=== PATIENT | female | born 1980 | race Caucasian/White ===

== ENCOUNTER 2019-10-18 13:58 | Outpatient (CLI) | payer OTHER, SELFPAY ==
--- NOTE | 2019-10-18 15:00 | NEURO_ITS ---
Patient Number: [id number] Impression: # Complains of pain and numbness in right upper extremity. # No Carpal Tunnel Syndrome. # No ulnar neuropathy. # Normal needle/EMG exam. Nerve Conduction Studies Anti Sensory Summary Table Stim Site NR Peak (ms) P-T Amp (?V) Site1 Site2 Delta-P (ms) Dist (cm) Pasha (m/s) Right Median Anti Sensory (2-3nd Digit) Wrist 2.5 51.2 Wrist 2-3nd Digit 2.5 14.0 56 Wrist 2.6 62.3 Wrist 2-3nd Digit 2.5 14.0 56 Right Radial Anti Sensory (Base 1st Digit) Wrist 2.2 20.3 Wrist Base 1st Digit 2.2 0.0 Right Ulnar Anti Sensory (5th Digit) Wrist 1.9 34.9 Wrist 5th Digit 1.9 14.0 74 Motor Summary Table Stim Site NR Onset (ms) O-P Amp (mV) Site1 Site2 Delta-0 (ms) Dist (cm) Pasha (m/s) Right Median Motor (Abd Poll Brev) Wrist 2.6 10.7 Elbow Wrist 5.0 30.0 60 Elbow 7.6 4.4 Right Ulnar Motor (Abd Dig Minimi) Wrist 2.5 4.5 A Elbow Wrist 4.6 29.0 63 A Elbow 7.1 3.6 F Wave Studies NR F-Lat (ms) L-R F-Lat (ms) Right Median (Mrkrs) (Abd Poll Brev) 24.19 Right Ulnar (Mrkrs) (Abd Dig Min) 24.97 EMG Side Muscle Nerve Root Ins Act Fibs Amp Dur Recrt Comment Right 1stDorInt Ulnar C8-T1 Nml Nml Nml Nml Nml Right Ext Indicis Radial (Post Int) C7-8 Nml Nml Nml Nml Nml Right Ext Digitorum Radial (Post Int) C7-8 Nml Nml Nml Nml Nml Right BrachioRad Radial C5-6 Nml Nml Nml Nml Nml Right PronatorTeres Median C6-7 Nml Nml Nml Nml Nml Right Abd Poll Brev Median C8-T1 Nml Nml Nml Nml Nml MTDD
== END 2019-10-18 13:59 | disposition home or self-care (01) ==
LOC: ANHNEURO 14:00
PROVIDERS: Visit Provider Internal Medicine
DX: M79.641 Pain in right hand (principal)
CPT/HCPCS: 95886; 95909

== ENCOUNTER 2020-04-09 17:50 | Emergency (ER) | payer OTHER, SELFPAY ==
--- NOTE | ~2020-04-09 | XR_ITS ---
EXAMINATION: XR ankle LT min 3V DATE: 04/09/2020 19:18 INDICATION: Lateral left ankle pain post fall TECHNIQUE: Anteroposterior, oblique, mortise, and lateral views of the left ankle were obtained. COMPARISON: None. FINDINGS: Alignment is normal. No fracture. Enthesophytes along the anterior margin of the lateral malleolus w hich could be either degenerative or sequela of chronic lateral ankle sprain. Joint spaces are well m aintained. Small amount of enthesopathic ossification at the distal Achilles tendon. Additional small plantar calcaneal enthesophyte. No ankle joint effusion. The soft tissues are unremarkable. IMPRESSION: 1. No acute osseous abnormality. Reviewed, dictated and finalized at location A. ER SHOULDER PAD
[2020-04-09 18:05] VITALS: BP 151/99; PULSE 82; RESP 16; TEMP 35.6; O2SAT 98
--- NOTE | 2020-04-09 19:38 | ED.LOWEXIN ---
HPI - Extremity Injury (Lower) General Chief Complaint: Extremity Injury, Lower Stated Complaint: fall at work, lt ankle pain Time Seen by Provider: 04/09/20 19:00 Source: patient Mode of arrival: ambulatory Limitations: no limitations History of Present Illness HPI Narrative: This is a 39 year old female that presents to the ER for left ankle pain after an injury yesterday. Reports she tripped and fell and twisted the ankle. Reports pain on the lateral aspect of the ankle, worse with weight bearing. Has been taking Ibuprofen for pain. Denies other injuries, decreased ROM, or numbness. Related Data Allergies Allergy/AdvReac Type Severity Reaction Status Date / Time No Known Allergies Allergy Unverified 02/13/18 15:48 Review of Systems Review of Systems: Narrative: CONSTITUTIONAL: Denies fever MUSCULOSKELETAL: Reports joint pain, and myalgia. NEUROLOGIC: Denies numbness All systems reviewed & are unremarkable except as noted in HPI and below PMFSH Surgical History Surgical History (Updated 04/09/20 @ 19:44 by Concepcion Pinedo PA-C) History of appendectomy Social History Social History (Updated 04/09/20 @ 19:43 by Concepcion Pinedo PA-C) Substance use: never Exam Narrative: Exam Narrative: GENERAL: Well-appearing, well-nourished, and in no acute distress. HEAD: Normocephalic, atraumatic. EYES: EOMI. EXTREMITIES: Normal range of motion. Mild edema about the left lateral malleoli, tender to palpation. Normal DP pulses. Normal sensation SKIN: Warm, dry, no rash. NEURO: No focal deficits. Alert and oriented x3. PSYCH: Normal mood and affect Course Vital Signs Vital signs: Vital Signs Temperature 96.1 F L 04/09/20 18:05 Pulse Rate 82 04/09/20 18:05 Respiratory Rate 16 04/09/20 18:05 Blood Pressure 151/99 H 04/09/20 18:05 Pulse Oximetry 98 04/09/20 18:05 Temperature 96.1 F L 04/09/20 18:05 Pulse Rate 82 04/09/20 18:05 Respiratory Rate 16 04/09/20 18:05 Blood Pressure 151/99 H 04/09/20 18:05 Pulse Oximetry 98 04/09/20 18:05 MDM - Extremity Injury (Lower) MDM Narrative Medical decision making narrative: Patient presents the emergency department for left ankle injury sustained yesterday. Left ankle x-rays without acute osseous abnormalities. Patient given crutches and Kevin wrap and instructed on care of ankle sprain. She is to follow-up with primary care doctor. She was given warnings to return to the ER Imaging Data Radiologist's impression: ITS Impressions Ankle X-Ray 04/09/20 19:22 IMPRESSION: 1. No acute osseous abnormality. Critical Care Time Critical Care Time Critical Care Time: No Discharge Plan Discharge Clinical Impression: Ankle sprain and strain Patient Disposition: Home, Self-Care Condition: Stable Instructions: Ankle Sprain (ED) Additional Instructions: Return the emergency department if you experience fever, redness and swelling of your leg, numbness, or any other symptoms that are concerning to you Wear KEVIN wrap and use crutches. No weight on the affected leg until able to bear weight without pain. Ice and elevate extremity. Pain medication as needed and directed. Follow up with primary care doctor for further care. Follow-up/Referrals: Gigi Bower MD [Physician] - 1 Week PHYSICIAN,[facility] [Primary Care Provider] -
== END 2020-04-09 20:03 | disposition home or self-care (01) ==
PROVIDERS: Emergency Provider Family Medicine
DX: S93.401A Sprain of unspecified ligament of right ankle, initial encounter (principal); S96.911A Strain of unspecified muscle and tendon at ankle and foot level, right foot, initial encounter; W01.0XXA Fall on same level from slipping, tripping and stumbling without subsequent striking against object, initial encounter
CPT/HCPCS: 73610; 99283

== ENCOUNTER 2021-11-24 13:42 | Outpatient (CLI) | payer OTHER, SELFPAY ==
--- NOTE | ~2021-11-24 | CT_ITS ---
EXAMINATION: CT ankle LT wo con DATE: 11/24/2021 14:15 INDICATION: Left ankle osteochondritis dissecans. Left ankle swelling. TECHNIQUE: Computed tomography (CT) of the left ankle was performed without intravenous contrast. Aut omated exposure control and iterative reconstruction technique were employed. The dose-length product was 315.28 mGy-cm. COMPARISON: Left ankle radiographs 04/09/2020 FINDINGS: Bone alignment is normal. No acute fracture. There is chronic heterotopic calcification dis rusty to lateral malleolus. There are changes of internal fixation of the tibiofibular syndesmosis with 2 bands. There are old screw holes in lateral malleolus and talus. There is mild tibiotalar joint os teoarthritis. There is mild osteoarthritis of many of the midfoot and hindfoot joints. There are enth esophytes at the posterior and plantar aspects of calcaneal tuberosity. There is medial and lateral a nkle subcutaneous edema versus scarring. IMPRESSION: 1. Mild polyarticular osteoarthritis. Reviewed, dictated and finalized at location A.
== END 2021-11-24 13:43 | disposition home or self-care (01) ==
PROVIDERS: Visit Provider Podiatrist Foot & Ankle Surgery
DX: M93.972 Osteochondropathy, unspecified, left ankle and foot (principal); M19.072 Primary osteoarthritis, left ankle and foot
CPT/HCPCS: 73700

== ENCOUNTER 2022-01-05 16:44 | Emergency (ER) | payer OTHER, SELFPAY ==
[2022-01-05 16:56] VITALS: BP 150/88; PULSE 77; RESP 16; TEMP 36.8; O2SAT 99
--- NOTE | 2022-01-05 17:58 | ED_ITS ---
HPI - Eye Problem General Chief complaint: Eye Problems Stated complaint: eye problems Time Seen by Provider: 01/05/22 17:36 History of Present Illness HPI Narrative: 41-year-old female presents to the emergency room for complaints discomfort to the left eye. Patient states that she feels like she might have accidentally scratched her eye earlier today. Patient denies any visual changes or light sensitivity. Patient does admit to a gravel like feeling to the inner aspect of her left eye. Related Data Allergies Allergy/AdvReac Type Severity Reaction Status Date / Time No Known Allergies Allergy Unverified 02/13/18 15:48 Review of Systems Review of Systems: CONSTITUTIONAL: Denies fever, chills, or sweats. EYES: Reports left eye irritation ENT: Denies rhinorrhea, congestion, sore throat, or otalgia. CARDIOVASCULAR: Denies chest pain, palpitations, or edema. RESPIRATORY: Denies cough or dyspnea. GASTROINTESTINAL: Denies abdominal pain, nausea, vomiting, or diarrhea. GENITOURINARY: Denies dysuria or hematuria. SKIN: Denies rash or itching. MUSCULOSKELETAL: Denies back pain, joint pain, or myalgia. NEUROLOGIC: Denies headache, numbness, dizziness, or weakness. PSYCHIATRIC: Denies anxiety or depression. [facility] Surgical History Surgical History History of appendectomy Social History Social History Substance use: never Exam Narrative: GENERAL: Well-appearing, well-nourished, no physical limitations, and in no acute distress. HEAD: Normocephalic, atraumatic. EYES: Left eye erythematous conjunctivae, PERRLA and EOMI. CHEST: Clear to auscultation. No respiratory distress. No wheezes rales or rhonchi. No tenderness. HEART: Regular rate and rhythm. No murmur heard. Normal peripheral pulses. ABDOMEN: Soft, nontender, nondistended, normal active bowel sounds. EXTREMITIES: Normal range of motion. No edema. No clubbing or cyanosis SKIN: Warm, dry, no rash. No noted wounds NEURO: No focal deficits. Alert and oriented x3. MAEW. CN's II-XI intact bilaterally, normal gait PSYCH: Cooperative. Normal mood and affect. Course Course Emergency Course: 1800: Left eye was anesthetized with. Fluorescein reuptake was noted to the left eye at the 8 o'clock position. Vital Signs Vital signs: Vital Signs Temperature 36.8 C 01/05/22 16:56 Pulse Rate 77 01/05/22 16:56 Respiratory Rate 16 01/05/22 16:56 Blood Pressure 150/88 H 01/05/22 16:56 Pulse Oximetry 99 01/05/22 16:56 Temperature 36.8 C 01/05/22 16:56 Pulse Rate 77 01/05/22 16:56 Respiratory Rate 16 01/05/22 16:56 Blood Pressure 150/88 H 01/05/22 16:56 Pulse Oximetry 99 01/05/22 16:56 Discharge Plan Discharge Clinical Impression: Corneal abrasion Patient Disposition: Home, Self-Care Condition: Stable Instructions: Antibiotic Form Prescriptions: New polymyxin B sulf-trimethoprim 10,000 unit- 1 mg/mL drops 1 drp LEFT EYE Q3H 7 Days Qty: 10 0RF Rx Instructions: while awake; do not exceed 6 doses in 24 hours Follow-up/Referrals: PHYSICIAN,[employer]BER [Primary Care Provider] - Time of Disposition: 18:01
[2022-01-05] MEDS: TETANUS,DIPHTHERIA,AC PERTUSSIS ADULT (0.5 ML) BOOSTRIX IM (18:03)
== END 2022-01-05 18:34 | disposition home or self-care (01) ==
LOC: ANHED 18:33
PROVIDERS: Emergency Provider Nurse Practitioner Family
DX: S05.02XA Injury of conjunctiva and corneal abrasion without foreign body, left eye, initial encounter (principal); X58.XXXA Exposure to other specified factors, initial encounter; Z23 Encounter for immunization
CPT/HCPCS: 90471; 90715; 99283; A9270

== ENCOUNTER 2022-04-16 16:16 | Outpatient (CLI) | payer OTHER, SELFPAY | END 2022-04-16 16:17 | disposition home or self-care (01) | PROVIDERS: Visit Provider Obstetrics & Gynecology | DX: Z01.818 Encounter for other preprocedural examination (principal); N92.0 Excessive and frequent menstruation with regular cycle | CPT/HCPCS: 36415; 86850; 86900; 86901 ==

== ENCOUNTER 2022-04-23 00:04 | Day surgery (SDC) | payer OTHER, SELFPAY ==
[2022-04-15 09:50] VITALS: BMI 38.2
--- NOTE | 2022-04-15 09:55 | PC.NURSE ---
Report to the Outpatient Waiting Room, entrance under the green pavilion located off [facility], at time 9:00 on date 04/23/22. Planned Procedure Time: 11:00. Time changes happen often and if your time is changed the preop area will call you the afternoon before. - You and your visitor will be asked to self-screen and do not enter if you have any COVID symptoms. - Only one visitor is requested with a max of two and NO children visitors are allowed at this time. - The patient visitor may be requested to leave or wait in car when not with patient due to distancing restrictions. - A mask is optional within the hospital. Patients may have clear liquids (water, carbonated beverages, clear teas, apple juice) until 3 hours prior to surgery (8:00) with a maximum of 20 ounces. - No food from midnight until time of surgery Take the following medications with a SIP of water the morning of surgery: NONE Medications to discontinue per physician: N/A Date to take last dose: N/A Please no make-up, nail mongolian, hairspray, perfume, deodorant, or body powder the day of surgery. No jewelry (including any body piercings) or valuables the day of surgery, leave them at home. Please take a shower or bath the night before, or the morning of, surgery with an antibacterial soap. Wear comfortable, loose fitting clothing. - Jewelry must be removed prior to entering the operating room. Rings and piercings that are not removed may be cut off. - The hospital will not accept responsibility for valuables. - Please leave all valuables, including medications, at home the day of surgery. If you are going home after surgery, a licensed mule driver must drive you home. - NO public transportation without another adult if you receive anesthesia. - We recommend that an adult stay with you for 24 hours following discharge. - We also recommend that you do not drive, make important decision, drink alcoholic beverages, or take any drugs that were not prescribed by your health care provider for at least 24 hours after your discharge time. Follow any additional instructions given to you from your surgeon. If you or anyone in your household have experienced Covid symptoms in the past week, please notify your surgeon or the nurse liaison at the phone number below for possible testing. Telephone instructions given to PT - CARMINA MATHUR and asked if any additional questions and then verbalized understanding. Patient advised to call surgeon office or pre surgery nurse liaison [phone] if any additional questions.
[2022-04-23] VITALS (10 sets, daily range): BP systolic 106–152; BP diastolic 57–95; PULSE 47–87; RESP 16–20; TEMP 36.3–36.6; O2SAT 95–100
--- NOTE | 2022-04-23 10:14 | P.PNAN_ITS ---
Anes - Initial Pre Proc Eval Procedure: Operation Date: 04/23/22 11:00 Proposed Procedures p Total Laparoscopic Hysterectomy with Bilateral Salpingectomy - Bettye Linn MD Date/Time: 04/23/22 10:14 Surgeon: Bettye Linn MD Pre Op Diagnosis: menorrhagia Patient Data Age: 41 Gender: F Height: 1.65 m Weight: 103.9 kg Allergies Allergy/AdvReac Type Severity Reaction Status Date / Time No Known Allergies Allergy Verified 04/23/22 09:54 Home Medications Medication Instructions Recorded Confirmed Type No Home Medications 04/15/22 04/23/22 History Patient hx anesthesia problems: none Family hx anesthesia problems: none Results Review: All pre-operative results and documents have been reviewed as part of the pre- operative evaluation. [facility] Surgical History Surgical History History of appendectomy Social History Social History Smoking status: Never smoker Alcohol intake: current Drinks per week: 2 Substance use: never Substance use type: does not use Living arrangements: with family Spiritual care concerns: No Anes - Eval Final PreProcedure Day of Procedure 04/23/22 10:14 Patient weight: obese Heart: regular rate and rhythm Lungs: clear to auscultation Airway: Mallampati scale class II Neurological: alert and oriented Last oral intake: >/= 8 hours ASA classification: III Emergent: no Anesthetic plan: proceed Anesthesia type and monitoring: general ETT and standard monitoring Results Review: All pre-operative results and documents have been reviewed as part of the pre-operative evaluation. Informed Consent: The patient's anesthetic plan and its attendant risks and benefits were discussed with the patient/family/POA. Questions were solicited and answers provided to the satisfaction of the patient/family/POA.
[2022-04-23] MEDS: KETOROLAC 15 MG/ML VIAL (*BKC) IV PUSH (10:20)
[2022-04-23] MEDS: ACETAMINOPHEN 500 MG TABLET 1000 MG PO (10:20)
[2022-04-23] MEDS: LACTATED RINGERS 1,000 ML 30 ML IV CONT ×2 (10:26→13:06)
[2022-04-23] MEDS: SCOPOLAMINE 1.5 MG PATCH TRANSDERM (10:26)
--- NOTE | 2022-04-23 10:37 | WPDHPUPDATE1 ---
History and Physical Update Update Date/Time: 04/23/22 10:37 History and Physical has been reviewed, including an updated exam of the patient. There are NO changes in the patient's condition. Risks, benefits, and alternatives have been discussed and questions answered. Patient agrees to proceed with procedure.
--- NOTE | 2022-04-23 11:07 | SUR.PREOP ---
DR MACARIO AWARE THAT PATIENT IS UNABLE/UNWILLING TO REMOVE RIGHT EYEBROW RING. REFUSAL TO REMOVE WAIVER SIGNED BY PATIENT AND PLACED IN CHART
[2022-04-23] MEDS: ceFAZolin 2 GM/D5W 50 ML 2 GM/50 ML BAG IVPB (11:15)
[2022-04-23] MEDS: ceFAZolin SODIUM 1 GM VIAL (12:04)
--- NOTE | 2022-04-23 12:56 | P.OP_ITS ---
Procedure Note - Detailed Date of Procedure 04/23/22 Pre-op Diagnosis menorrhagia Post-op Diagnosis Same Procedure Performed Total laparoscopic hysterectomy. Surgeon Bettye Linn MD Anesthesia General Indications Menorrhagia Findings Very hard/scarred tissue in the parametrium and the vagina was thick and scarred. The posterior cul-de-sac bilateral surfaces were scarred. Normal- appearing ovaries. Mildly enlarged uterus. Normal vulva, vagina, cervix. Description of Procedure This patient was taken to the operating room. She was prepped and draped in the dorsal lithotomy position after induction of general anesthesia. The uterine manipulator and Karen cup were placed. This was done with a speculum and tenaculum. The speculum was placed. The cervix was grasped with a tenaculum. The stay sutures were placed at 3 and 9:00 a.m.. The stay sutures of 0 Vicryl were brought through the appropriately sized Karen cup. The tip of the LAINEY manipulator was placed in the intrauterine cavity. The cup was slid into place around the cervix and into the fornices. It was locked into place. The sutures were then wrapped around the handle and tied under tension. A 5 mm skin incision was made in the left upper quadrant the abdomen. A 5 mm trocar was inserted into the intrauterine cavity under direct visualization of the scope. Pneumoperitoneum was achieved. A left lower quadrant 11 mm incision was made with scalpel. An 11 mm trocar was inserted into the anterior abdominal cavity under direct visualization the scope. A 5 mm infraumbilical incision was made with a scalpel and a 5 mm trocar was inserted the intra-abdominal cavity under direct visualization of the scope. Bilateral ureteral lysis was performed. This was done from the pelvic brim down to the uterine artery. This was done with careful dissection using sharp and blunt dissection. The fallopian tubes were removed bilaterally. The mesosalpinx around the fallopian tubes were cauterized transected with LigaSure cautery. This was done in a bilateral fashion from the ovary to the uterine cornua. The fallopian tube was transected at the uterine cornu and amputated. The tube was taken out the left lower quadrant trocar site. In a stepwise fashion along the lateral aspects of the uterus the round ligament and broad ligaments were cauterized transected down to the level of the uterine arteries. A bladder flap was created in the bladder was moved distally to the end of the cervix and over the Karen cup. The bilateral uterine arteries were cauterized and transected. Colpotomy was then performed. In a circumferential fashion the vagina was transected using unipolar cautery. The incision was made down on the Karen cup. The uterus and cervix were taken out through the vagina. A pneumo occluder was placed in the vagina. The vaginal cuff was closed with a 0 V lock suture in a running fashion. The pelvis was irrigated with copious amounts antibiotic irrigation. The ureters were again examined and found to be intact and flowing freely under the uterine arteries into the bladder. The bladder was intact. It was examined directly. The vagina was irrigated with Betadine solution after removal of the Pneumo occluder. The patient was taken to recovery room. She was stable condition. Sponge lap and needle counts were correct x2. Estimated Blood Loss 100 Drains Yes Packing No Pathology Yes Complications No immediate complications Condition Stable Disposition Floor
[2022-04-23] MEDS: ONDANSETRON INJ 4 MG/2 ML VIAL IV PUSH (13:47)
[2022-04-23] MEDS: fentaNYL CITRATE INJ (*CRX) 100 MCG/2 ML VIAL 25 MCG IV PUSH ×2 (13:50→13:52)
[2022-04-23] MEDS: KETOROLAC 30 MG/ML VIAL (*BKC) IV PUSH ×2 (14:57→22:00)
[2022-04-23] MEDS: DEXTROSE 5%/0.45% SOD CHL 1,000 ML 125 ML IV CONT (14:58)
--- NOTE | 2022-04-23 16:03 | ADMGEN ---
1437-This patient, Jael Tabares, was admitted to OB 2nd Floor Room 287-00. Patient/family oriented to hospital policies and general routines including ID bracelet, bed and alarms, visiting hours, pain management, procedures, bathroom and other care routines, personal items, smoking policy, room service/diet, and visiting hours. Information on how to activate the Rapid Response Team has been discussed. Patient/Family are encouraged to report perceived risks to care and to ask questions if they do not understand what they are told or what they should do.
[2022-04-23] MEDS: HYDROcodone/acetaminophen (*CRX) 5-325 MG TABLET 1 TAB PO (17:48)
[2022-04-24 00:20] VITALS: BP 133/78; PULSE 74; RESP 18; TEMP 36.7; O2SAT 98
[2022-04-24 04:30] VITALS: BP 130/75; PULSE 62; RESP 18; TEMP 37; O2SAT 96
--- NOTE | 2022-04-24 08:30 | PC.NURSE ---
PT introductions made and plan of care discussed per post op director advertising surgery, pain management, daily care activities and pending discharge to home. PT sole recipient of such instructions and no barriers to learning identified at this time. PT received such instructions per one to one discussion and demonstrations. PT verbalized understanding of such care.
[2022-04-24 09:13] VITALS: BP 118/72; BP 130/75; PULSE 74; RESP 18; TEMP 36.6; O2SAT 100
[2022-04-24] MEDS: IBUPROFEN 600 MG TABLET PO (09:13)
--- NOTE | 2022-04-24 09:35 | PM.GYNPNOP ---
TREATING ENGINEER - A/P Postoperative Procedures: Procedures Operation Date: 04/23/22 11:00 Actual Procedure Side Surgeon p Total Laparoscopic Hysterectomy with Bilateral Salpingectomy Bilateral Bettye Linn MD Postoperative day: 1 Postoperative status: doing well Postoperative plan: see orders Time Spent With Patient Time: Total time spent is greater than 50% in coordination of care (as documented) at patient's floor/unit and/or counseling patient: Time with patient: less than 15 minutes TREATING ENGINEER- PN:Subj Post-Op Subjective Date/time seen: 04/24/22 09:35 Subjective: patient reports feeling better, patient has no complaints and pain is well controlled Exam Const: General: healthy appearing, comfortable and no acute distress Resp: Auscultation: clear to auscultation bilaterally, no rales, no rhonchi and no wheezes Cardio: Rate: regular rate Heart sounds: no click, no murmurs and no rubs GI: Inspection: non-distended Auscultation: normal bowel sounds Extrem: General: normal to inspection, no pedal edema and no calf tenderness TREATING ENGINEER - PN: Obj Data Vital Signs Vital Signs: Vital Signs - 24 hr 04/23/22 13:06 04/23/22 13:20 04/23/22 13:35 Temperature 97.9 F Pulse Rate 70 60 55 L Respiratory Rate 17 20 20 Blood Pressure 106/57 L 140/82 152/91 H Pulse Oximetry 97 100 100 Oxygen Delivery Simple Face Mask Simple Face Mask Simple Face Mask Oxygen Flow Rate 8 8 8 04/23/22 13:50 04/23/22 14:05 04/23/22 14:20 Temperature Pulse Rate 48 L 47 L 50 L Respiratory Rate 16 18 16 Blood Pressure 150/83 H 133/76 140/84 Pulse Oximetry 95 99 98 Oxygen Delivery Room Air Nasal Cannula Nasal Cannula Oxygen Flow Rate 2 2 04/23/22 15:00 04/23/22 14:45 04/23/22 20:00 Temperature 97.8 F 98 F Pulse Rate 58 L 58 L 60 Respiratory Rate 16 16 16 Blood Pressure 140/84 136/82 Pulse Oximetry 100 100 100 Oxygen Delivery Nasal Cannula Oxygen Flow Rate 2 04/23/22 20:00 04/24/22 00:20 04/24/22 00:20 Temperature 98.1 F Pulse Rate 74 Respiratory Rate 18 Blood Pressure 133/78 Pulse Oximetry 100 98 Oxygen Delivery Nasal Cannula Room Air Oxygen Flow Rate 1 04/24/22 04:30 04/24/22 04:30 Temperature 98.6 F Pulse Rate 62 Respiratory Rate 18 Blood Pressure 130/75 Pulse Oximetry 96 Oxygen Delivery Room Air Oxygen Flow Rate Intake/Output Intake/Output: Intake & Output 04/21/22 04/22/22 04/23/22 04/24/22 23:59 23:59 23:59 23:59 Intake Total 2350 Output Total 1640 Balance 710 Meds/Results Medications: Active Medications Generic Name Dose Route Start Last Admin Trade Name Freq PRN Reason Stop Dose Admin Hydrocodone Bitart/Acetaminophen 1 tab 04/23/22 14:29 04/23/22 17:48 Hydrocodone/Acetaminophen (*Crx) 5-325 Mg Tablet PO 1 tab Q3H PRN Administration Pain Rated 5 or Less Hydrocodone Bitart/Acetaminophen 1 tab 04/23/22 14:29 Hydrocodone/Acetaminophen (*Crx) 10-325 Mg Tablet PO Q3H PRN Pain Rated 6 or Greater Ibuprofen 600 mg 04/23/22 14:29 04/24/22 09:13 Ibuprofen 600 Mg Tablet PO 600 mg Q6H PRN Administration Cramping Ketorolac Tromethamine 30 mg 04/23/22 14:29 04/23/22 22:00 Ketorolac 30 Mg/Ml Vial (*Bkc) IV PUSH 04/28/22 14:28 30 mg Q6H PRN Administration Pain Rated 4-6 Naloxone HCl 0.1 mg 04/23/22 14:29 Naloxone Hcl 0.4 Mg/Ml Vial IV PUSH Q2M PRN Respiratory rate less than 10 Ondansetron HCl 4 mg 04/23/22 14:29 Ondansetron Inj 4 Mg/2 Ml Vial IV PUSH Q6H PRN Nausea And Vomiting
--- NOTE | 2022-04-24 12:51 | WPDANESPN ---
Anes - Prog Note Post-Op Date/Time: 04/24/22 11:34 Cardiovascular status: normal Respiratory status: normal Airway patency: baseline Mental status: baseline Post-Op hydration status: normal Vital Signs: Last Vital Signs Temp 97.8 F 04/24/22 09:13 Pulse 74 04/24/22 09:13 Resp 18 04/24/22 09:13 BP 130/75 04/24/22 09:13 Pulse Ox 100 04/24/22 09:13 O2 Del Method Room Air 04/24/22 09:13 O2 Flow Rate 1 04/23/22 20:00 Pain Score (VAS): 2 I/O: Intake & Output 04/23/22 04/24/22 04/24/22 23:59 07:59 15:59 Intake Total 1500 480 Output Total 1500 Balance 0 480 Post-procedural complaints: none Patient Feedback: Patient satisfied with anesthetic care.
--- NOTE | 2022-04-24 14:00 | PC.NURSE ---
PT received discharge instruction per protocol and verbalized understanding of such care.
--- NOTE | 2022-04-24 14:17 | PC.NURSE ---
PT discharged to home via wheelchair accompanied by mother and taken to waiting car. Follow up appts confirmed
== END 2022-04-24 14:17 | disposition home or self-care (01) ==
LOC: ANHSURGERY 08:48 → ANHOB2 14:31
PROVIDERS: Visit Provider Obstetrics & Gynecology
PROC: 0UT9FZZ Resection of Uterus, Via Natural or Artificial Opening With Percutaneous Endoscopic Assistance (ICD-10-PCS; CPT 58571; principal; 2022-04-23 11:00)
DX: N92.0 Excessive and frequent menstruation with regular cycle (principal); N80.00 Endometriosis of the uterus, unspecified; E66.9 Obesity, unspecified; Z68.38 Body mass index [BMI] 38.0-38.9, adult
CPT/HCPCS: 58571; 88300; 88307; 99199; A9270; J0690; J1100; J1885; J2250; J2405; J2704; J2710; J3010; J7030; J7120

== ENCOUNTER 2022-05-19 10:06 | Emergency (ER) | payer OTHER, SELFPAY ==
[2022-05-19 10:07] VITALS: BP 164/106; PULSE 81; RESP 18; TEMP 36.4; O2SAT 99
--- NOTE | 2022-05-19 12:40 | ED.GENADULT ---
HPI - General Adult General Chief complaint: Skin/Abscess/Foreign Body Stated complaint: rash on my face Time Seen by Provider: 05/19/22 12:10 Source: patient Mode of arrival: ambulatory Limitations: no limitations History of Present Illness HPI narrative: 41-year-old here with facial rash for past 1 day. Patient states that she took Diflucan and broke out in rash she complains of occasional itching. Patient states that she had similar episode when she took her last time, always happens on her face. She denies any shortness of breath or problems swallowing. Onset (ago): day(s) (1) Location: face Radiation: non-radiation Severity: mild Pain Consistency: constant Relieving factors: none Exacerbating factors: none Associated symptoms: denies other symptoms Related Data Allergies Allergy/AdvReac Type Severity Reaction Status Date / Time No Known Allergies Allergy Verified 04/23/22 09:54 Review of Systems Review of Systems: All systems reviewed & are unremarkable except as noted in HPI and below Constitutional: Constitutional: Reports no additional constitutional complaints Eyes: Eyes: Reports no additional eye complaints ENT: Reports system reviewed and no additional complaints, except as documented Cardiovascular: Cardiovascular: Reports no additional cardiovascular complaints Respiratory: Respiratory: Reports no additional respiratory complaints Gastrointestinal: Gastrointestinal: Reports no additional gastrointestinal complaints Musculoskeletal: Musculoskeletal: Reports no additional musculoskeletal complaints Integumentary/Breasts: Skin/Breast: Reports as per HPI Neurologic: Reports system reviewed and no additional complaints, except as documented PMFSH Surgical History Surgical History History of appendectomy Social History Social History Smoking status: Never smoker Alcohol intake: current Drinks per week: 2 Substance use: never Substance use type: does not use Living arrangements: with family Spiritual care concerns: No Exam Narrative: GENERAL: Well-appearing, well-nourished, and in no acute distress. HEAD: Normocephalic, atraumatic. EYES: PERRLA and EOMI. NECK: Supple. CHEST: Clear to auscultation. No respiratory distress. HEART: Regular rate and rhythm. No murmur heard. Normal peripheral pulses. EXTREMITIES: Normal range of motion. No edema. SKIN: Warm, dry, has a erythematous rash on the face NEURO: No focal deficits. Alert and oriented x3. PSYCH: Normal mood and affect. Course Course Emergency Course: Advised to stop using Diflucan and use prednisone as prescribed Vital Signs Vital signs: Vital Signs Temperature 36.4 C 05/19/22 10:07 Pulse Rate 81 05/19/22 10:07 Respiratory Rate 18 05/19/22 10:07 Blood Pressure 164/106 H 05/19/22 10:07 Pulse Oximetry 99 05/19/22 10:07 Temperature 36.4 C 05/19/22 10:07 Pulse Rate 70 05/19/22 12:54 Respiratory Rate 12 05/19/22 12:54 Blood Pressure 142/102 H 05/19/22 12:54 Pulse Oximetry 98 05/19/22 12:54 Medical Decision Making Vital Signs Vital Signs: Vital Signs Temperature 36.4 C 05/19/22 10:07 Pulse Rate 81 05/19/22 10:07 Respiratory Rate 18 05/19/22 10:07 Blood Pressure 164/106 H 05/19/22 10:07 Pulse Oximetry 99 05/19/22 10:07 Temperature 36.4 C 05/19/22 10:07 Pulse Rate 70 05/19/22 12:54 Respiratory Rate 12 05/19/22 12:54 Blood Pressure 142/102 H 05/19/22 12:54 Pulse Oximetry 98 05/19/22 12:54 Discharge Plan Discharge Clinical Impression: Allergic reaction to drug Patient Disposition: Home, Self-Care Condition: Stable Instructions: Allergies (ED) Additional Instructions: take medication as prescribed , can take benadryl as needed for itching Prescriptions: New prednisone 20 mg tablet 20 mg PO BID Qty: 1
[2022-05-19 12:54] VITALS: BP 142/102; PULSE 70; RESP 12; O2SAT 98
== END 2022-05-19 12:55 | disposition home or self-care (01) ==
PROVIDERS: Emergency Provider Family Medicine
DX: R21 Rash and other nonspecific skin eruption (principal); T37.8X5A Adverse effect of other specified systemic anti-infectives and antiparasitics, initial encounter
CPT/HCPCS: 99283

== ENCOUNTER 2022-08-22 23:58 | Emergency (ER) | payer OTHER, SELFPAY ==
[2022-08-23 00:05] VITALS: BP 145/82; PULSE 98; RESP 18; TEMP 36.5; O2SAT 99
[2022-08-23 01:21] LABS: Appearance Urine Turbid (Clear); Bacteria Urine 4+ /hpf; Bilirubin Urine Negative (Negative); Blood Urine Trace (Negative); Color Urine Yellow (Yellow); Glucose Urine UA Negative (Negative); Ketones Urine Trace mg/dL (Negative); Leukocyte Esterase Ur 3+ LEU/UL (Negative); Need Manual Microscopic Reviewed; Nitrate Urine Negative (Negative); Non Pathogenic Casts 0-2; Protein Urine 1+ mg/dL (Negative); Specific Grav Ur 1.013 (1.001-1.035); Squamous Epithelial Cell Urine Moderate /hpf (Few); WBC Urine 51-100 /hpf; pH Urine 6.5 (5.0-9.0)
[2022-08-23 01:22] LABS: Add Urine Microscopic? YES
--- NOTE | 2022-08-23 01:30 | ED.BACK ---
HPI - Back Pain/Injury General Chief Complaint: Back Pain/Injury Stated Complaint: back pain started this morning, denies injury Time Seen by Provider: 08/23/22 00:45 History of Present Illness HPI Narrative: 42-year-old female presenting to the Emergency Department for evaluation of lower back pain and kidney pain. Patient does also report some burning with urination. Patient states she did have sexual activity recently and started having the symptoms afterwards. Related Data Allergies Allergy/AdvReac Type Severity Reaction Status Date / Time fluconazole Allergy Hives Verified 08/23/22 00:45 Review of Systems Review of Systems: All systems reviewed & are unremarkable except as noted in HPI and below PMFSH Surgical History Surgical History History of appendectomy Social History Social History Smoking status: Never smoker Alcohol intake: current Drinks per week: 2 Substance use: never Substance use type: does not use Living arrangements: with family Spiritual care concerns: No Exam Narrative: APPEARANCE: Well appearing, no pain, no distress, well-nourished. HEAD: normocephalic, atraumatic. EYES: PERRLA/EOMI, conjunctivae clear. NOSE: Normal no drainage NECK: Supple. No adenopathy, no masses. RESPIRATORY: Airway patent, respirations nonlabored. Clear to auscultation bilaterally, no rales, rhonchi, wheezing. CARDIOVASCULAR: Regular rate and rhythm without murmurs rubs or gallops. ABDOMINAL: Soft, nontender, nondistended, normal bowel sounds. Bilateral CVA tenderness to palpation MUSCULOSKELETAL: Moves all extremities. Strength/ROM intact, No edema, No calf tenderness. NEURO: Alert. Cranial nerves II through XII intact. SKIN: Warm, dry. Normal Color Course Course Emergency Course: 42-year-old female with lower back pain. UA was significant for urinary tract infection. Patient was provided Pyridium and Keflex in the emergency room. Urine culture was ordered. Patient was updated and results of her work-up. Patient will also be discharged with Pyridium and Keflex. Patient was comfortable with the plan for discharge and close follow-up Vital Signs Vital signs: Vital Signs Temperature 97.7 F 08/23/22 00:05 Pulse Rate 98 08/23/22 00:05 Respiratory Rate 18 05/29/23 00:05 Blood Pressure 145/82 H 08/23/22 00:05 Pulse Oximetry 99 08/23/22 00:05 Oxygen Delivery Room Air 08/23/22 00:05 Temperature 97.7 F 08/23/22 00:05 Pulse Rate 81 08/23/22 01:44 Respiratory Rate 16 08/23/22 01:44 Blood Pressure 113/77 08/23/22 01:44 Pulse Oximetry 98 08/23/22 01:44 Oxygen Delivery Room Air 08/23/22 00:05 MDM - Back Pain/Injury Differential Diagnosis Differential diagnosis: Likely lumbar radiculopathy, sciatica, renal colic and pyelonephritis Lab Data Attestation: I reviewed the patient's lab results. Labs: Lab Results 08/23/22 Range/Units 00:46 Urine Color Yellow (Yellow) Urine Appearance Turbid H (Clear) Urine pH 6.5 (5.0-9.0) Ur Specific [place] 1.013 (1.001-1.035) Urine Protein 1+ H (Negative) mg/dL Urine Glucose (UA) Negative (Negative) mg/dL Urine Ketones Trace H (Negative) mg/dL Ur Blood (Man) Trace (Negative) Urine Nitrate Negative (Negative) Urine Bilirubin Negative (Negative) Urine Urobilinogen 1.0 (<2.0) mg/dL Add Ur Microanalysis Reviewed Leukocyte Esterase Rfl 3+ H (Negative) ALLA/UL Urine RBC 11-20 H (0-2) /hpf Urine WBC 51-100 H /hpf Ur Squamous Epith Cells Moderate (Few) /hpf Urine Bacteria 4+ H /hpf Urine Casts 0-2 Discharge Plan Discharge Clinical Impression: UTI (urinary tract infection) Back pain Qualifiers: Back pain location: low back pain Chronicity: acute Patient Disposition: Home, Self-Care Condition: Stable Instructions: Antibiotic Fo
[2022-08-23] MEDS: PHENAZOPYRIDINE HCL 100 MG TABLET PO (01:36)
[2022-08-23] MEDS: CEPHALEXIN 250 MG CAPSULE PO (01:36)
[2022-08-23 01:44] VITALS: BP 113/77; PULSE 81; RESP 16; O2SAT 98
== END 2022-08-23 01:45 | disposition home or self-care (01) ==
PROVIDERS: Emergency Provider Emergency Medicine
DX: N39.0 Urinary tract infection, site not specified (principal); M54.50 Low back pain, unspecified
CPT/HCPCS: 81001; 87077; 87086; 87088; 87186; 99283; A9270

== ENCOUNTER 2022-10-02 12:58 | Emergency (ER) | payer OTHER, SELFPAY ==
--- NOTE | ~2022-10-02 | XR_ITS ---
EXAMINATION: XR chest 2V DATE: 10/02/2022 13:55 INDICATION: Cough. Lightheadedness. TECHNIQUE: Frontal and lateral views of the chest were obtained. COMPARISON: None. FINDINGS: The chest demonstrates clear lungs without pneumonia, pleural effusion, or pneumothorax. Th e heart size is normal. IMPRESSION: 1. No acute cardiopulmonary disease. Reviewed, dictated and finalized at location A.
[2022-10-02 13:04] VITALS: BP 153/87; PULSE 75; RESP 14; TEMP 36.8; O2SAT 97
--- NOTE | 2022-10-02 13:09 | ECG_ITS ---
Measurements Intervals [place] Rate: 77 P: 46 AL: 154 QRS: 29 QRSD: 86 T: 12 QT: 365 QTc: 414 Interpretive Statements SINUS RHYTHM BORDERLINE ST-T WAVE ABNORMALITY- INFERIOR LEADS BORDERLINE ECG NO PREVIOUS ECG AVAILABLE FOR COMPARISON Electronically Signed On 10-02-2022 16:42:29 CDT by Car Morley D.O.
--- NOTE | 2022-10-02 13:32 | ED.RECABL ---
HPI - Recheck/Abnormal Lab/Rx General Chief Complaint: Recheck/Abnormal Lab/Rx Stated Complaint: weird feeling in my body, GUERRERO, nausea Time Seen by Provider: 10/02/22 13:06 History of Present Illness HPI narrative: Patient is a 42-year-old female with a history of hypertension presenting with lightheadedness. Patient states that she had 2 episodes yesterday of lightheadedness with nausea. States that she woke up this morning and again had the sensation. States that she was on her way to work when she became too lightheaded so she came in for evaluation. She reports nasal congestion and a mild cough but no chest pain or shortness of breath. No abdominal pain, vomiting, diarrhea, dysuria, leg swelling. No recent fevers or headache. No numbness or weakness. No vertigo. Patient states that she is supposed to be on blood pressure medicines but she has never had them filled. Related Data Allergies Allergy/AdvReac Type Severity Reaction Status Date / Time fluconazole Allergy Hives Verified 08/23/22 00:45 Review of Systems Review of Systems: All systems reviewed & are unremarkable except as noted in HPI and below PMFSH Surgical History Surgical History History of appendectomy Social History Social History Smoking status: Never smoker Alcohol intake: current Drinks per week: 2 Substance use: never Substance use type: does not use Living arrangements: with family Spiritual care concerns: No Exam Narrative: GENERAL: Well-appearing, well-nourished, and in no acute distress. HEAD: Normocephalic, atraumatic. EYES: PERRLA and EOMI. ENT: Mild nasal congestion. Mucous membranes moist. NECK: Supple. CHEST: Clear to auscultation. No respiratory distress. No chest wall tenderness HEART: Regular rate and rhythm. No murmur heard. Normal peripheral pulses. ABDOMEN: Soft, nontender, nondistended EXTREMITIES: Normal range of motion. No edema. SKIN: Warm, dry, no rash. NEURO: No focal deficits. Alert and oriented x3. PSYCH: Normal mood and affect. Course Vital Signs Vital signs: Vital Signs Temperature 98.2 F 10/02/22 13:04 Pulse Rate 75 10/02/22 13:04 Respiratory Rate 14 10/02/22 13:04 Blood Pressure 153/87 H 10/02/22 13:04 Pulse Oximetry 97 10/02/22 13:04 Oxygen Delivery Room Air 10/02/22 13:04 Temperature 98.2 F 10/02/22 13:04 Pulse Rate 68 10/02/22 16:28 Respiratory Rate 16 10/02/22 16:28 Blood Pressure 137/60 10/02/22 16:28 Pulse Oximetry 99 10/02/22 16:28 Oxygen Delivery Room Air 10/02/22 13:04 MDM - Recheck/Abnormal Lab/Rx MDM Narrative Medical decision making narrative: Patient is a 42-year-old female presenting with episodes of lightheadedness. Patient is slightly hypertensive, otherwise vitals are within normal limits. Exam remarkable for the above. EKG per my interpretation shows normal sinus rhythm, normal axis and intervals, no ST elevations or depressions. Blood work is unremarkable. Normal renal function. No leukocytosis. Troponin is undetectable. UA is a bit contaminated but does not appear infected. Patient was given IV fluids. Orthostatics are normal. On reevaluation, the patient is resting comfortably. States that she feels improved. She is asking about a work note. We will provide a work note through Tuesday. Advised close PCP follow-up. Advised adequate oral hydration. Appropriate return precautions given. Patient voiced understanding and is agreeable with plan. Discharged in stable condition. Differential Diagnosis Differential diagnosis: Likely other (lightheadedness, hypertension, dehydration, UTI) Medical Records Attestation: I reviewed the patient's medical records. Lab Data Attestation: I reviewed the patient's lab results. 10/02/22 13:42 10/02/22 13:42 Labs: Lab Results 0
[2022-10-02] MEDS: SODIUM CHLORIDE 0.9% IV 1,000 ML 999 ML IV CONT (14:07)
[2022-10-02 14:08] LABS: Basophils Percent Auto 0.6 % (0.2-1.2); Eosinophils Absolute Auto 0.1 K/mm3 (0-0.3); Eosinophils Percent Auto 1.9 % (0-4.4); Hematocrit 42.7 % (37.0-47.0); Hemoglobin 13.9 g/dL (12.0-15.0); Immature Granulocyte Absolute 0.02 K/mm3 (0.00-0.031); Immature Granulocyte Percent A 0.3 % (0-0.5); Lymphocytes Absolute Auto 1.25 K/mm3 (0.9-3.2); Lymphocytes Percent Auto 19.6 % (18.3-44.2); Mean Corpuscular HGB Conc 32.6 g/dl (32-36); Mean Corpuscular Hemoglobin 30.9 pg (26-34); Mean Corpuscular Volume 94.9 fl (80-100); Mean Platelet Volume 10.9 fl (7.4-10.4); Monocytes Absolute Auto 0.4 K/mm3 (0.1-0.6); Monocytes Percent Auto 6.7 % (2.6-8.5); Neutrophils Absolute Auto 4.5 K/mm3 (1.3-6.7); Neutrophils Percent Auto 70.9 % (45.5-73.1); Platelet Count Result 226 k/mm3 (150-375); Red Cell Distribution Width 13.2 % (11.5-14.5); White Blood Count 6.4 K/mm3 (4.5-10.0)
[2022-10-02 14:20] LABS: Partial Thromboplastin Time 27.5 SECONDS (22.3-36.8); Prothrombin Time 13.4 Seconds (11.1-14.7)
[2022-10-02 14:21] LABS: Alanine Aminotransferase 27 U/L (6-35); Albumin Level 4.6 g/dL (3.5-5.1); Alkaline Phosphatase 68 U/L (38-126); Anion Gap 7 mmol/L (8-16); Aspartate Amino Transferase 20 U/L (14-36); Bilirubin,Total 0.5 mg/dL (0.2-1.3); Blood Urea Nitrogen 16 mg/dL (7-17); Calcium 9.5 mg/dL (8.4-10.2); Carbon Dioxide 30 mmol/L (22-30); Chloride 101 mmol/L (98-107); Estimated CRCL calculation 110 ml/min; Estimated Glomerular Filt Rate > 60; Glucose 108 mg/dL (65-110); Lipase 58 U/L (23-300); Magnesium 2.1 mg/dL (1.6-2.3); Potassium 4.6 mmol/L (3.4-5.0); Sodium 138 mmol/L (137-145)
[2022-10-02 14:32] LABS: Troponin I < 0.012 ng/mL (0.000-0.034)
[2022-10-02 14:38] LABS: Appearance Urine Turbid (Clear); Bacteria Urine Rare /hpf; Bilirubin Urine Negative (Negative); Blood Urine Negative (Negative); Color Urine Yellow (Yellow); Glucose Urine UA Negative (Negative); Hyaline Casts Urine Present /lpf; Ketones Urine Negative (Negative); Leukocyte Esterase Ur Trace LEU/UL (Negative); Nitrate Urine Negative (Negative); Non Pathogenic Casts 0-2; Protein Urine Negative (Negative); Specific Grav Ur 1.019 (1.001-1.035); Squamous Epithelial Cell Urine Occasional /hpf (Few); Urobilinogen Urine 0.2 mg/dL (<2.0); WBC Urine 0-5 /hpf; pH Urine 7.5 (5.0-9.0)
[2022-10-02 14:42] LABS: Add Urine Microscopic? YES
[2022-10-02 14:48] LABS: Influenza A QL RT-PCR Negative (Negative); Influenza B QL RT-PCR Negative (Negative); RSV RNA, RT-PCR Negative (Negative); SARS-CoV-2 RNA PCR Negative (Negative)
[2022-10-02 14:52] VITALS: BP 133/87; PULSE 66
[2022-10-02 14:54] VITALS: BP 147/90; PULSE 63
[2022-10-02 14:56] VITALS: BP 144/102; PULSE 72
[2022-10-02 15:46] VITALS: BP 142/87; PULSE 68; RESP 16; O2SAT 96
[2022-10-02 16:28] VITALS: BP 137/60; PULSE 68; RESP 16; O2SAT 99
== END 2022-10-02 16:28 | disposition home or self-care (01) ==
PROVIDERS: Emergency Provider Emergency Medicine
DX: R42 Dizziness and giddiness (principal); I10 Essential (primary) hypertension; Z20.822 Contact with and (suspected) exposure to COVID-19
CPT/HCPCS: 36415; 71046; 80053; 81001; 83690; 83735; 84484; 85025; 85610; 85730; 87637; 93005; 96360; 96361; 99284; J7030

== ENCOUNTER 2023-07-17 15:26 | Emergency (ER) | payer OTHER, SELFPAY ==
[2023-07-17 15:28] VITALS: BP 141/80; PULSE 75; RESP 18; TEMP 36.6; O2SAT 100
[2023-07-17 18:07] LABS: Appearance Urine Cloudy (Clear); Bacteria Urine 3+ /hpf; Bilirubin Urine Negative (Negative); Blood Urine Negative (Negative); Color Urine Yellow (Yellow); Glucose Urine UA Negative (Negative); Ketones Urine Negative (Negative); Leukocyte Esterase Ur Negative LEU/UL (Negative); Need Manual Microscopic Reviewed; Nitrate Urine Negative (Negative); Non Pathogenic Casts 0-2; Protein Urine Negative (Negative); Specific Grav Ur 1.021 (1.001-1.035); Squamous Epithelial Cell Urine Few /hpf (Few); Urobilinogen Urine 0.2 mg/dL (<2.0)
[2023-07-17 18:09] LABS: Add Urine Microscopic? YES
--- NOTE | 2023-07-17 18:15 | ED.FEMALEGU ---
HPI - Female Genitourinary General Chief complaint: Urogenital-Female Stated complaint: UTI Time Seen by Provider: 07/17/23 17:50 Source: patient Mode of arrival: ambulatory Limitations: no limitations History of Present Illness HPI Narrative: This is a 42-year-old female who presents to the ED with chief complaint of urinary symptoms for the past 2 days. Reports urgency and frequency. States it is difficult to urinate fully. Denies hematuria or burning. Denies fevers, chills, abdominal pain, flank pain, nausea, vomiting. States last time she had UTIs she took Macrobid this seemed to help. Related Data Allergies Allergy/AdvReac Type Severity Reaction Status Date / Time fluconazole Allergy Hives Verified 08/23/22 00:45 Review of Systems Review of Systems: All systems as dictated in [facility] Surgical History Surgical History History of appendectomy Social History Social History Smoking status: Never smoker Alcohol intake: current Drinks per week: 2 Substance use: never Substance use type: does not use Living arrangements: with family Spiritual care concerns: No Exam Narrative: GENERAL: Well-appearing, well-nourished, and in no acute distress. HEAD: Normocephalic, atraumatic. EYES: PERRLA and EOMI. ENT: Nares clear, no rhinorrhea or epistaxis. Mucous membranes moist. Oropharynx without tonsillar hypertrophy exudate or other lesions. NECK: Supple. No adenopathy or masses. CHEST: No respiratory distress. Clear to auscultation. No wheezes rales or rhonchi HEART: Regular rate and rhythm. No murmur heard. Normal peripheral pulses. ABDOMEN: Negative flank tenderness. Soft, nontender, nondistended, normal active bowel sounds. MSK: Normal range of motion. No edema. SKIN: Warm, dry, no rash. NEURO: Alert and oriented x3. No focal deficits. PSYCH: Normal mood and affect. Course Vital Signs Vital signs: Vital Signs Temperature 97.8 F 07/17/23 15:28 Pulse Rate 75 07/17/23 15:28 Respiratory Rate 18 07/17/23 15:28 Blood Pressure 141/80 H 07/17/23 15:28 Pulse Oximetry 100 04/21/24 15:28 Oxygen Delivery Room Air 07/17/23 15:28 Temperature 97.8 F 07/17/23 15:28 Pulse Rate 75 07/17/23 15:28 Respiratory Rate 18 07/17/23 15:28 Blood Pressure 141/80 H 07/17/23 15:28 Pulse Oximetry 100 07/17/23 15:28 Oxygen Delivery Room Air 07/17/23 15:28 MDM - Female Genitourinary MDM Narrative Medical decision making narrative: This is a 42-year-old female who presents to the ED with chief complaint of urinary symptoms for the past 2 days. Feels similar to previous UTIs. Vitals are normal. Exam is benign. No flank pain or evidence of acute abdomen. Urinalysis shows 3-5 rbc's, 6-10 wbc's 3+ bacteria indicating UTI. She has done well with Macrobid in the past some Macrobid was prescribed today. Previous urine culture does show sensitivity to Macrobid. Pt will be discharged in stable condition. Return precautions given and supportive measures discussed. Pt is understanding and agreeable with plan for discharge and follow-up with PCP. Lab Data Labs: Lab Results 07/17/23 Range/Units 17:45 Urine Color Yellow (Yellow) Urine Appearance Cloudy H (Clear) Urine pH 6.0 (5.0-9.0) Ur Specific [place] 1.021 (1.001-1.035) Urine Protein Negative (Negative) mg/dL Urine Glucose (UA) Negative (Negative) mg/dL Urine Ketones Negative (Negative) mg/dL Ur Blood (Man) Negative (Negative) Urine Nitrate Negative (Negative) Urine Bilirubin Negative (Negative) Urine Urobilinogen 0.2 (<2.0) mg/dL Add Ur Microanalysis Reviewed Leukocyte Esterase Rfl Negative (Negative) ALLA/UL Urine RBC 3-5 H (0-2) /hpf Urine WBC 6-10 H (0-3) /hpf Ur Squamous Epith Cells Few (Few) /hpf Urine Bacteria 3+ H /hpf Uri
== END 2023-07-17 18:30 | disposition home or self-care (01) ==
LOC: ANHED 18:27
PROVIDERS: Emergency Provider Physician Assistant
DX: N39.0 Urinary tract infection, site not specified (principal)
CPT/HCPCS: 81001; 87086; 87088; 99283

== ENCOUNTER 2023-07-24 18:03 | Emergency (ER) | payer OTHER, SELFPAY ==
[2023-07-24 18:09] VITALS: BP 151/87; PULSE 76; RESP 16; TEMP 36.1; O2SAT 100
[2023-07-24 18:32] VITALS: RESP 18; O2SAT 98
[2023-07-24 18:53] LABS: Carboxyhemoglobin 0.6 % THb (0-2.0); Fractional Inspired Oxygen 21 %; HCO3 ABG 23.5 mEq/l (22.0-26.0); Methemoglobin ABG 0.1 %THb (0-1.5); Oxygen Content ABG 19.5 %vol (16.0-22.0); Oxygen Saturation ABG 97.6 % (95.0-100.0); Oxyhemoglobin 96.7 % THb (90.0-100.0); PCO2 ABG 35.2 mmHg (35.0-45.0); PO2 ABG 96.6 mmHg (80.0-100.0); Reduced Hemoglobin 2.6 %THb (0-5.0); Total Hemoglobin 14.3 g/dL (12.0-18.0); pH ABG 7.443 (7.350-7.450)
[2023-07-24 18:54] LABS: Site Drawn LEFT RADIAL
[2023-07-24 18:55] LABS: Device ROOM AIR; Modified Allen's Test Pass
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
== END 2023-07-24 19:17 | disposition home or self-care (01) ==
PROVIDERS: Emergency Provider Emergency Medicine
DX: Z77.098 Contact with and (suspected) exposure to other hazardous, chiefly nonmedicinal, chemicals (principal)
CPT/HCPCS: 36600; 82375; 82805; 83050; 99283

== ENCOUNTER 2024-08-14 13:17 | Outpatient (CLI) | payer OTHER, SELFPAY ==
--- OUTSIDE RECORDS SUMMARY | 2024-08-14 13:22 | XMS_ITS | Data Portability ---
Author Organization [facility] [place] Address [address] [place] [address] Assessment Encounter Date Assessment Date Assessment LastModified by Organization Details LastModified Time 01/24/2024 01/24/2024 Annual gynecological exam performed. Patient will come back in a year unless there are new symptoms. [email or web address] Not available 01/24/2024 12:48:32 Plan of Treatment Reminders Order Date Submit Date Provider Last Modified By Organization Details Last Modified Time Details Appointments None recorded . Lab CMP, serum or plasma 2023 [facility] (Lab), [address], [place], [address], 5 05:01:36 TSH, serum or plasma 2023 [facility] (Lab), [address] [place], [address], 5 05:01:36 T4, free, serum 2023 [facility] (Lab), [address] [place], [address], 5 05:01:36 HbA1c (hemoglo bin A1c), blood 2023 [facility] (Lab), [address], [place], [address], 5 05:01:36 urinalys is, dipstick 2023 024 [email or web address] [address], [address], [place], [address], 4 17:16:08 culture, urine 2023 024 [facility] (Lab), [address], [place], [address], 4 07:21:29 urinalys is, dipstick 2023 024 [email or web address] [address], [address], [place], [address], 4 14:33:51 hbcab (hepatit is B core Ab) igm, serum 2022 023 [facility] (Lab), [address], [place], [address], 3 23:11:45 HBsAg (hepatit is B surface Ag), serum 2022 023 [facility] (Lab), [address], [place], [address], 3 23:11:43 hepatiti s C virus Ab, serum 2022 023 [facility] (Lab), [address], [place], [address], 3 23:11:44 unlisted lab - HIV 1/2 antigen/ antibody , reflex confirma tion 2022 023 [facility] (Lab), [address], [place], [address], 3 23:11:44 RPR (rapid plasma reagin), serum 2022 023 [facility] (Lab), [address], [place], [address], 3 23:11:44 Referral physical therapis t referral 2023 [facility] (Outpatient Physical Therapy), [address], [place], [address], 5 05:01:36 Procedures None recorded . Surgeries None recorded . Imaging MAMMO, screenin g, digital, bilatera l 2023 [facility], [address], [place], [place], [address], 5 05:01:36 Medication Orders Macrobid [address] [facility] #36696, [address] [place] [address], [id number], 4 12:52:58 Pyridium [address] [facility] #36852, [address] [place] [address], [id number], 4 12:52:34 acyclovi r [address] [facility] #22967, [address] [place] [address], [id number], 4 17:14:26 triamcin olone acetonid e 0.025 % topical ointment 2023 024 [email or web address] [facility] #38200, [address] [place] [address], [id number], 4 17:14:07 Macrobid 100 mg capsule 2023 024 [email or web address] [facility] #87358, [address] [place] [address], [id number], 4 12:52:22 acyclovi r 800 mg tablet [address] [facility] #88739, [address], [id number], 4 14:41:12 terconaz ole 0.8 % vaginal cream 2022 023 [facility] #89265, [address], [id number], 3 15:21:43 triamcin olone acetonid e 0.1 % topical ointment 2022 023 [facility] #21050, [address], [id number], 3 15:21:47 Patient TargetsNo targets recorded. Patient InstructionsNo instructions recorded. Reason for Referral Physical Therapist Referral for Left side sciatica Referring Physician: Jose Shaw, CABLE LACER, Encounter Date: 01/24/2024 Results Created Date Observation Date Name Description Value Unit Range Abnormal Flag Note LastModifiedBy Organization Detail LastModifiedTime 07/20/1907/19/2022 CT/GC AND TRICH OMONA S VAGIN GUERO (RRNA ), SWAB chlamydia trachomatis, PCR Negati ve negati ve Not Available [facility] (Lab) [address] , [place], [address], 2022 13:35:47 07/20/19 23 07/19/2022 CT/GC AND TRICH OMONA S VAGIN GUERO (RRNA ), SWAB neisseria gonorrhoeae, PCR Negati ve negati ve Not Available [facility] (Lab) [address], [place], [address], 2022 13:35:47 07/20/19 23 07/19/2022 CT/GC AND TRICH OMONA S VAGIN GUERO (RRNA ), SWAB trichomonas vaginalis ribosomal RNA (rrna) Negati ve negati ve Not Available [facility] (Lab) [address] [place], [address], 2022 13:35:47 07/20/19 23 07/19/2022 VAGIN ITIS/ VAGIN OSIS, DNA PROBE camille sp. detection, direct probe Positi ve negati ve abnormal Not Available [facility] (Lab) [address] [place], [address], 2022 13:35:48 07/20/19 23 07/19/2022 VAGIN ITIS/ VAGIN OSIS, DNA PROBE gardnerella vag. detection, direct probe Positi ve negati ve abnormal Not Available [facility] (Lab) [address] [place], [address], 2022 13:35:48 07/20/19 23 07/19/2022 VAGIN ITIS/ VAGIN OSIS, DNA PROBE trichomonas vag. detection, direct probe Negati ve negati ve Not Available [facility] (Lab) [address] [place], [address], 2022 13:35:48 07/20/19 23 07/19/2022 CULTU RE: URINE result report SEE RESULT S BELOW Test: Cultu re: Urine Speci men Sourc e: Urine Voide d Speci men Type: Urine Speci men Date: 2022 3:15 PM Resul t Date: 2022 12:33 PM Resul t Statu s: Final resul t Abnor mal: No Resul ting Lab: [facility] [address] [facility] [address] Tel: [phone] CULTU RE ----- ----- ----- --- Cultu re resul t (>=3 organ isms prese nt) indic ates possi ble conta minat ion. Repea t cultu re if sympt oms indic ate. Not Available [facility] (Lab) [address] [facility], [place], [address], 2022 13:35:48 12/21/1912/20/2022 HEPAT ITIS B SURFA CE ANTIG EN hepatitis B surface antigen NON-RE ACTIVE non-re active This assay was perfo rmed using [employer] reage nts and test kits. Value s obtai carmella with other assay metho ds or kits canno t be used inter regalado eably . Not Available [facility] (Lab) [address] [facility], [place], [address], 12/22/2022 23:11:43 12/21/1912/20/2022 HEPAT ITIS C ANTIB NATANAEL SCREE N, REFLE X TO CONFI RMATI ON hepatitis C antibody NON-RE ACTIVE non-re active Antib odies to HCV Not Detec louis, does not exclu de the possi bilit y of expos ure to HCV. Not Available [facility] (Lab) [address] [facility], [place], [address], 12/22/2022 23:11:43 12/21/1912/20/2022 HIV 1/2 ANTIG EN/AN TIBOD Y, REFLE X CONFI RMATI ON HIV antigen/anti body NONREA CTIVE nonrea ctive HIV-1 antig en and HIV-1 /HIV- 2 antib odies were not detec louis. No labor atory evide nce of HIV infec tion. Not Available [facility] (Lab) [address] [facility], [place], [address], 12/22/2022 23:11:44 12/21/19 23 12/20/2022 RPR SCREE N/REF ASIA TITER /FTA RPR screen NONREA CTIVE nonrea ctive Not Available [facility] (Lab) [address] [facility], [place], [address], 12/22/2022 23:11:44 12/21/19 23 12/20/2022 HEPAT ITIS B CORE, IGM hepatitis B core IgM antibody NEGATI VE negati ve Not Available [facility] (Lab) [address] [facility], [place], [address], 12/22/2022 23:11:45 04/07/19 24 04/07/2023 URINA LYSIS , WITH MICRO SCOPI C, REFLE X CULTU RE color, urine Light Yellow Not Available [facility] (Lab) [address] [facility], [place], [address], 04/08/2023 04:00:22 04/07/19 24 04/07/2023 URINA LYSIS , WITH MICRO SCOPI C, REFLE X CULTU RE clarity, urine Clear Not Available [facility] (Lab) [address] [facility], [place], [address], 04/08/2023 04:00:22 04/07/19 24 04/07/2023 URINA LYSIS , WITH MICRO SCOPI C, REFLE X CULTU RE specific gravity, urine 1.020 . 1.005- 1.035 Not Available [facility] (Lab) [address] [place], [address], 04/08/2023 04:00:22 04/07/19 24 04/07/2023 URINA LYSIS , WITH MICRO SCOPI C, REFLE X CULTU RE pH, urine 7.0 . 5.0-7. 0 Not Available [facility] (Lab) [address] [place], [address], 04/08/2023 04:00:22 04/07/19 24 04/07/2023 URINA LYSIS , WITH MICRO SCOPI C, REFLE X CULTU RE protein, UA Negati ve mg/dL negati ve, 10-20 Not Available [facility] (Lab) [address] [place], [address], 04/08/2023 04:00:22 04/07/19 24 04/07/2023 URINA LYSIS , WITH MICRO SCOPI C, REFLE X CULTU RE glucose, urine Normal mg/dL normal , negati ve Not Available [facility] (Lab) [address] [facility], [place], [address], 04/08/2023 04:00:22 04/07/19 24 04/07/2023 URINA LYSIS , WITH MICRO SCOPI C, REFLE X CULTU RE ketones, urine Negati ve mg/dL negati ve Not Available [facility] (Lab) [address] [facility], [place], [address], 04/08/2023 04:00:22 04/07/19 24 04/07/2023 URINA LYSIS , WITH MICRO SCOPI C, REFLE X CULTU RE bilirubin, urine Negati ve negati ve Not Available [facility] (Lab) [address] [facility], [place], [address], 04/08/2023 04:00:22 04/07/19 24 04/07/2023 URINA LYSIS , WITH MICRO SCOPI C, REFLE X CULTU RE blood, urine Negati ve negati ve Not Available [facility] (Lab) [address] [facility], [place], [address], 04/08/2023 04:00:22 04/07/19 24 04/07/2023 URINA LYSIS , WITH MICRO SCOPI C, REFLE X CULTU RE nitrite, urine 2+ negati ve abnormal Not Available [facility] (Lab) [address] [facility], [place], [address], 04/08/2023 04:00:22 04/07/19 24 04/07/2023 URINA LYSIS , WITH MICRO SCOPI C, REFLE X CULTU RE leukocyte esterase, urine Negati ve alberto/u L negati ve Not Available [facility] (Lab) [address] [facility], [place], [address], 04/08/2023 04:00:22 04/07/19 24 04/07/2023 URINA LYSIS , WITH MICRO SCOPI C, REFLE X CULTU RE urobilinogen , urine Normal mg/dL normal , <2.0 Not Available [facility] (Lab) [address] [facility], [place], [address], 04/08/2023 04:00:22 04/07/19 24 04/07/2023 URINA LYSIS , WITH MICRO SCOPI C, REFLE X CULTU RE RBC, urine 0-2 /hpf none, 0-2 Not Available [facility] (Lab) [address] [facility], [place], [address], 04/08/2023 04:00:22 04/07/19 24 04/07/2023 URINA LYSIS , WITH MICRO SCOPI C, REFLE X CULTU RE WBC, urine 0-5 /hpf none, 0-5 Not Available [facility] (Lab) [address] [facility], [place], [address], 04/08/2023 04:00:22 04/07/19 24 04/07/2023 URINA LYSIS , WITH MICRO SCOPI C, REFLE X CULTU RE squamous epithelial cells, urine Few /hpf none abnormal Not Available [facility] (Lab) [address] [facility], [place], [address], 04/08/2023 04:00:22 04/07/19 24 04/07/2023 URINA LYSIS , WITH MICRO SCOPI C, REFLE X CULTU RE bacteria, urine Trace /hpf none abnormal Not Available [facility] (Lab) [address] [facility], [place], [address], 04/08/2023 04:00:22 04/07/19 24 04/07/2023 URINA LYSIS , WITH MICRO SCOPI C, REFLE X CULTU RE hyaline cast, urine None /lpf none, 0-2 Not Available [facility] (Lab) [address] [facility], [place], [address], 04/08/2023 04:00:22 04/07/19 24 04/07/2023 URINA LYSIS , WITH MICRO SCOPI C, REFLE X CULTU RE mucus, urine Modera te /hpf none, trace, few abnormal Urine Cultu re not perfo rmed per refle x marycarmen col. Not Available [facility] (Lab) [address] [facility], [place], [address], 04/08/2023 04:00:22 04/07/19 24 04/07/2023 VAGIN ITIS/ VAGIN OSIS, DNA PROBE camille sp. detection, direct probe Negati ve negati ve Not Available [facility] (Lab) [address] [facility], [place], [address], 04/08/2023 09:52:39 04/07/19 24 04/07/2023 VAGIN ITIS/ VAGIN OSIS, DNA PROBE gardnerella vag. detection, direct probe Positi ve negati ve abnormal Not Available [facility] (Lab) [address] [facility], [place], [address], 04/08/2023 09:52:39 04/07/19 24 04/07/2023 VAGIN ITIS/ VAGIN OSIS, DNA PROBE trichomonas vag. detection, direct probe Negati ve negati ve Not Available [facility] (Lab) [address] [facility], [place], [address], 04/08/2023 09:52:39 04/07/19 24 04/07/2023 urina lysis , dipst ick Leukocytes trace Not Available Mandeep arellano [address], [place], [address], 04/07/2023 14:26:36 04/07/19 24 04/07/2023 urina lysis , dipst ick Nitrite + Not Available [facility] [address], [place], [address], 04/07/2023 14:26:36 04/07/19 24 04/07/2023 urina lysis , dipst ick Urobilinogen neg Not Available [facility] [address], [place], [address], 04/07/2023 14:26:36 04/07/19 24 04/07/2023 urina lysis , dipst ick Protein trace Not Available [facility] [address], [place], [address], 04/07/2023 14:26:36 04/07/19 24 04/07/2023 urina lysis , dipst ick pH 7 Not Available [facility] [address], [place], [address], 04/07/2023 14:26:36 04/07/19 24 04/07/2023 urina lysis , dipst ick Blood trace Not Available [facility] [address], [place], [address], 04/07/2023 14:26:36 04/07/19 24 04/07/2023 urina lysis , dipst ick Specific [place] 1.010 Not Available [facility] am[facility] [address], [place], [address], 04/07/2023 14:26:36 04/07/19 24 04/07/2023 urina lysis , dipst ick Ketone neg Not Available [facility] [address], [place], [address], 04/07/2023 14:26:36 04/07/19 24 04/07/2023 urina lysis , dipst ick Bilirubin neg Not Available [facility] [address], [place], [address], 04/07/2023 14:26:36 04/07/19 24 04/07/2023 urina lysis , dipst ick Glucose neg Not Available [facility] [address], [place], [address], 04/07/2023 14:26:36 04/07/19 24 04/07/2023 urina lysis , dipst ick Appearance clear Not Available [facility] [address], [place], [address], 04/07/2023 14:26:36 04/07/19 24 04/07/2023 urina lysis , dipst ick Color yellow Not Available [facility] [address], [place], [address], 04/07/2023 14:26:36 08/23/19 24 08/23/2023 CULTU RE: URINE result report SEE RESULT S BELOW Test: Cultu re: Urine Speci men Sourc e: Urine - Clean Catch Speci men Type: Urine Speci men Date: 2023 4:58 PM Resul t Date: 2023 6:16 AM Resul t Statu s: Final resul t Abnor mal: No Resul ting Lab: [facility] [address] [facility] [address] Tel: CULTU RE ----- ----- ----- --- No growt h in 1 day (dete ction level of 10,00 0 colon ies / ml.) Not Available [facility] (Lab) [address], [place], [address], 08/25/2023 07:21:29 08/23/19 24 08/23/2023 urina lysis , dipst ick Leukocytes trace Not Available [facility] [address], [place], [address], 08/23/2023 17:14:46 08/23/19 24 08/23/2023 urina lysis , dipst ick Nitrite + Not Available [facility] [address], [place], [address], 08/23/2023 17:14:46 08/23/19 24 08/23/2023 urina lysis , dipst ick Urobilinogen normal Not Available [facility] lenin [address], [place], [address], 08/23/2023 17:14:46 08/23/19 24 08/23/2023 urina lysis , dipst ick Protein trace Not Available [facility] [address], [place], [address], 08/23/2023 17:14:46 08/23/19 24 08/23/2023 urina lysis , dipst ick pH 5 Not Available [facility] [address], [place], [address], 08/23/2023 17:14:46 08/23/19 24 08/23/2023 urina lysis , dipst ick Specific [place] 1.030 Not Available [facility] [address], [place], [address], 08/23/2023 17:14:46 08/23/19 24 08/23/2023 urina lysis , dipst ick Ketone normal Not Available [facility] [address], [place], [address], 08/23/2023 17:14:46 08/23/19 24 08/23/2023 urina lysis , dipst ick Bilirubin normal Not Available [facility] sylvia [address], [place], [address], 08/23/2023 17:14:46 08/23/19 24 08/23/2023 urina lysis , dipst ick Glucose normal Not Available [facility] [address], [place], [address], 08/23/2023 17:14:46 08/23/19 24 08/23/2023 urina lysis , dipst ick Appearance normal Not Available [facility] [address], [place], [address], 08/23/2023 17:14:46 08/23/19 24 08/23/2023 urina lysis , dipst ick Color normal Not Available [facility] [address], [place], [address], 08/23/2023 17:14:46 Result Notes None recorded. 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 16:01:43 Problem Notes None recorded. Procedures Surgical History Date Name Laterality Status Provider Name and Address Organization Details Recorded Time 04/23/19 23 ROBOTIC ASSISTED HYSTERECTOMY WITH SALPINGECTOMY (SURG) completed Conchita Garland [facility] 04/26/2022 09:43:58 04/14/19 23 Removal of Foreign Body completed HECTOR Calle [address], [place], [address], [facility] 04/14/2022 15:19:50 05/12/19 22 Date of Last Pap Smear completed Amber Hewitt [facility] 05/27/2022 14:20:56 03/28/19 21 Endometrial Ablation completed Amber Prairie [facility] 01/19/2022 14:35:42 01/28/20 20 ligation of fallopian tube completed Waleska Palmubo [facility] [address], [place], [address], [facility] 02/09/2022 14:12:58 03/28/19 20 Date of Last Mammogram completed Amber Nichols [facility] 01/19/2022 14:33:52 03/28/19 14 repair of ulnar digital nerve completed Amber Nichols [facility] 01/19/2022 14:36:57 03/28/19 13 Carpal tunnel surgery completed [facility] 01/19/2022 14:36:10 03/28/18 88 Appendectomy completed [facility] 01/19/2022 14:35:52 Imaging Results None recorded. Procedure Notes None recorded. Medical Equipment None Reported. Allergies Allergen ID Allergen Name Allergen Category Reaction Reaction Severity Criticality Documentation Date Start Date Code Code System Note Provider Name and Address Organization Details Recorded Time fluconazo le medicatio n Not available Not available Not available 05/27/2022 4450 RxNorm [facility] 14:20:38 Medications Name Sig Start Date Stop Date Status Note LastModified by Organization Details LastModified Time cyclobenzap rine 10 mg tablet TAKE 1 TABLET BY MOUTH AT BEDTIME NEEDED FOR MUSCLE CRAMPS active Not Available Not Available No t Available ibuprofen 800 mg tablet TAKE 1 TABLET BY MOUTH EVERY 8 HOURS WITH FOOD NEEDED 08/22 completed Not Available Not Available Not Available nystatin 100,000 unit/gram topical ointment APPLY TOPICALLY TO THE AFFECTED AREA TWICE DAILY 05/27 completed Not Available Not Available Not Available fluconazole 150 mg tablet TAKE 1 TABLET BY MOUTH NOW. REPEAT IN 7 DAYS 05/27 completed Not Available Not Available Not Available cephalexin 250 mg capsule TAKE 1 CAPSULE BY MOUTH EVERY 6 HOURS FOR 7 DAYS 12/20 completed Not Available Not Available Not Available hydrocodone 5 mg-acetamin ophen 325 mg tablet TAKE 1 TABLET BY MOUTH EVERY 4 HOURS NEEDED FOR PAIN 05/27 completed Not Available Not Available Not Available fluconazole 200 mg tablet TAKE 1 TABLET BY MOUTH EVERY OTHER DAY FOR 3 DOSES 05/27 completed Not Available Not Available Not Available meloxicam 15 mg tablet TAKE 1 TABLET BY MOUTH DAILY 01/19 completed Not Available Not Available Not Available metronidazo le 0.75 % (37.5 mg/5 gram) vaginal gel INSERT 1 APPLICATO RFUL EVERY DAY VAGINALLY AT BEDTME FOR 5 DAYS 08/22 completed Not Available Not Available Not Available ondansetron HCl 4 mg tablet TAKE 1 TABLET BY MOUTH EVERY 8 HOURS 04/07 completed Not Available Not Available Not Available prednisone 20 mg tablet TAKE 1 TABLET BY MOUTH TWICE DAILY 05/27 completed Not Available Not Available Not Available terconazole 0.8 % vaginal cream INSERT 1 APPLICATO RFUL VAGINALLY EVERY DAY AT BEDTIME FOR 3 DAYS 12/20 completed Not Available Not Available Not Available metronidazo le 500 mg tablet TAKE 1 TABLET BY MOUTH EVERY 12 HOURS FOR 7 DAYS 12/20 completed Not Available Not Available Not Available acyclovir 400 mg tablet TAKE 1 TABLET BY MOUTH EVERY 8 HOURS FOR 10 DAYS DIRECTED 05/27 completed Not Available Not Available Not Available ciprofloxac in 500 mg tablet TAKE 1 TABLET BY MOUTH EVERY 12 HOURS 05/27 completed Not Available Not Available Not Available triamcinolo ne acetonide 0.1 % topical cream APPLY TOPICALLY TO THE AFFECTED AREA TWICE DAILY 12/20 completed Not Available Not Available Not Available acyclovir 800 mg tablet Take 1 tablet every day by oral route with meal(s) for 30 days. 2024 active Not Available Not Available Not Avai lable nystatin-tr iamcinolone 100,000 unit/gram-0 .1 % topical ointment APPLY TO AFFECTED AREA BY TOPICAL ROUTE 2 TIMES PER DAY FOR 7 DAYS 05/27 completed Not Available Not Available Not Available oxycodone-a cetaminophe n 5 mg-325 mg tablet TAKE 1 TABLET BY MOUTH EVERY EVENING NEEDED FOR PAIN 04/07 completed Not Available Not Available Not Available amoxicillin 875 mg tablet TAKE 1 TABLET BY MOUTH EVERY 12 HOURS FOR 10 DAYS 01/19 completed Not Available Not Available Not Available phenazopyri dine 100 mg tablet TAKE 1 TABLET BY MOUTH THREE TIMES DAILY FOR 3 DAYS NEEDED 01/23 completed Not Available Not Available Not Available triamcinolo ne acetonide 0.1 % topical ointment APPLY THIN LAYER TOPICALLY TO THE AFFECTED AREA TWICE DAILY FOR 5 DAYS 12/20 completed Not Available Not Available Not Available polymyxin B sulfate 10,000 unit-trimet hoprim 1 mg/mL eye drops INSTILL 1 DROP IN LEFT EYE EVERY 3 HOURS WHILE AWAKE FOR 7 DAYS. DO NOT EXCEED 6 DOSES IN 24 HOURS 02/09 completed Not Available Not Available Not Available hydrochloro thiazide 12.5 mg capsule TAKE 1 CAPSULE BY MOUTH EVERY DAY IN THE MORNING 02/09 completed Not Available Not Available Not Available triamcinolo ne acetonide 0.025 % topical ointment APPLY THIN LAYER TOPICALLY TO THE AFFECTED AREA TWICE DAILY NEEDED 08/22 completed Not Available Not Available Not Available gabapentin 300 mg capsule TAKE 1 CAPSULE BY MOUTH EVERY NIGHT 02/09 completed Not Available Not Available Not Available albuterol sulfate HFA 90 mcg/actuati on aerosol inhaler INHALE 2 PUFFS BY MOUTH EVERY 4 HOURS NEEDED active Not Available Not Available No t Available nitrofurant oin monohydrate /macrocryst als 100 mg capsule TAKE 1 CAPSULE BY MOUTH EVERY 12 HOURS FOR 7 DAYS 01/23 completed Not Available Not Available Not Available Vitals Date Recorded Body height Systolic blood pressure Diastolic blood pressure Provider Name and Address Organization Details Last Updated DateTime 07/19/2022 160.02 cm 145 mm[Hg] 88 mm[Hg] [facility] 07/19/2022 11:22:43 Date Recorded Body height Body mass index (BMI) Body weight Systolic blood pressure Diastolic blood pressure Provider Name and Address Organization Details Last Updated DateTime 12/20/2022 160.02 cm 42.8 kg/m2 738328.6 4 g 141 mm[Hg] 85 mm[Hg] [facility] 3 15:21:23 Date Recorded Body height Body mass index (BMI) Body weight Systolic blood pressure Diastolic blood pressure Provider Name and Address Organization Details Last Updated DateTime 04/07/2023 160.02 cm 40.6 kg/m2 259569.6 5 g 132 mm[Hg] 84 mm[Hg] Amber Hewitt [facility] 4 14:19:23 Date Recorded Body height Body mass index (BMI) Body weight Provider Name and Address Organization Details Last Updated DateTime 08/23/2023 160.02 cm 42.2 kg/m2 365084.98 g Sydnee Ortiz [facility] 08/23/2023 17:13:37 Date Recorded Systolic blood pressure Diastolic blood pressure Provider Name and Address Organization Details Last Updated DateTime 08/23/2023 126 mm[Hg] 78 mm[Hg] Waleska Palumbo, [facility] [address], [place], [address], [facility] 08/23/2023 18:01:00 Date Recorded Body height Body mass index (BMI) Body weight Systolic blood pressure Diastolic blood pressure Provider Name and Address Organization Details Last Updated DateTime 01/24/2024 160.02 cm 44.1 kg/m2 923227.5 g 136 mm[Hg] 88 mm[Hg] Elham Rush [facility] 12:51:53 Social History Question Answer Notes LastModified by Organizat ion Details LastModified Time Tobacco Smoking Status Never Smoker Ashleigh Damián [email or web address], [facility] 04/07/2023 14:12:24 Do You Have An Advance Directive? No Information n ot available 03/04/2022 Are You Blind Or Do You Have Difficulty Seeing? No Information n ot available 01/19/2022 What Is Your Level Of Caffeine Consumption? Occasional Information not available 01/19/2022 How Much Tobacco Do You Chew? None Information not available 02/09/2022 In The 14 Days Before Symptom Onset, Have You Had Close Contact With A Laboratory-confirm ed COVID-19 While That Case Was Ill? No Information n ot available 02/09/2022 In The 14 Days Before Symptom Onset, Have You Had Close Contact With A Person Who Is Under Investigation For COVID-19 While That Person Was Ill? No Information not available 02/09/2022 Have You Been To An Area Known To Be High Risk For COVID-19? No Information not available 02/09/2022 Are You Deaf Or Do You Have Serious Difficulty Hearing? No Information not available 01/19/2022 What Type Of Diet Are You Following? REGULAR Information n ot available 01/19/2022 What Is The Highest Grade Or Level Of School You Have Completed Or The Highest Degree You Have Received? [id number] Information not available 02/09/2022 Are There Any Guns Present In Your Home? No Information not available 02/09/2022 Do You Use Protection During Sex? Always Information not available 01/24/2024 Do You Use Your Seat Belt Or Car Seat Routinely? Yes Information not available 01/19/2022 Are You Sexually Active? Yes [email or web address] Information not available 04/07/2023 Do You Have Smoke And Carbon Monoxide Detectors In Your Home? Yes Information not available 02/09/2022 How Much Tobacco Do You Smoke? No Information not available 02/09/2022 Do You Use Sunscreen Routinely? No Information not available 02/09/2022 Have You Used IV Drugs? No Information not available 02/09/2022 Do You Have Difficulty Walking Or Climbing Stairs? No [email or web address] Information not available 04/07/2023 Sex: Unknown Functional Status Question Answer Note LastModified by Organizat ion Details LastModified Time Do you use any illicit or recreational drugs? No Information not available 01/19/2022 What is your level of alcohol consumption? None Information not available 01/19/2022 Are you able to walk? YESWOREST Information not available 01/19/2022 Are you able to care for yourself? Yes [email or web address] Information n ot available 04/07/2023 What is your occupation? [employer] [email or web address] Information not available 01/24/2024 Do you have difficulty dressing or bathing? No [email or web address] Information not available 04/07/2023 What is your exercise level? Occasional Information not available 01/19/2022 Mental Status Question Answer Note LastModified by Organization D etails LastModified Time Do you feel stressed (tense, restless, nervous, or anxious, or unable to sleep at night)? [id number] Information not available 03/04/2022 Family History Relationship Description Onset Age of this Age Resolved Age Notes LastModified by Organization Details LastModified Time Mother Hypertensive disorder [email or web address] Not available 06/27 11:22:47 Mother Hypertensive disorder [email or web address] Not available 2023 12:46:11 Maternal Grandmother Malignant neoplasm of ovary [email or web address] Not available 06/27 11:22:47 Maternal Grandmother Malignant neoplasm of ovary [email or web address] Not available 2023 12:46:11 Sister Hypertensive disorder [email or web address] Not available 06/27 11:22:47 Sister Hypertensive disorder [email or web address] Not available 2023 12:46:11 Medical History Condition Response Allergies (Food, seasonal, environmental ) Y Other N Breast Cancer N Drug/Latex Allergies/Reactions Y Blood Transfusion N Dermatologic Disorders N Lung Disease N Defects or Inherited Disease N Breast Problem N Gestational Diabetes N Hematologic disorders N Anesthesia Complications N History of STI Y Deep Vein Thrombosis N Polycystic ovary syndrome N Anxiety Disorder N Autoimmune disease N Arthritis N Infertility N Polyps N Acid Reflux (GERD) N History of abnormal pap N Cancer N Stroke N Varicosities N Neurologic/Epilepsy Y Endometriosis N High Cholesterol N Headaches N Fibromyalgia N Kidney Disease N Heart Problems Y Kidney or Bladder Problems N Thyroid Problems N GI Problems N Eating Disorder N Anemia N Art (IVF or FET) N Psychiatric Illness N Ovarian Cancer N Diabetes N Pulmonary (TB, Asthma) N Hepatitis/Liver Disease N No Past Medical History N Eczema N Urinary Tract Infection N Abuse/Domestic Violence N Asthma Y Trauma/Violence N Depression/ depression N Heart Disease N Pre-Eclampsia N Hypertension N Osteoporosis N Thrombophilias N Gynecological History Statement/Question Response Abnormal Pap N Flow Heavy Date of Last Mammogram 03/28/2019 Date of LMP 04/12/2022 N On BCP's at Conception? N STIs/STDs Y Was last menstrual period normal N HPV Vaccine N Duration of Flow (days) 5 Current Control Method Hysterectom y Age at First Child 28 Sexually Active? N Sterilization Menses Monthly N Date of DEXA bone scan Age of first menstrual cycle 14 Date of Last Pap Smear 05/12/2021 Sexual Problems? N LMP Approximate Desired Control Method Ablation N Obstetrics History GPAL:G 1 P 0 0 0 1 Type Value Living 1 Total 1 Past Encounters Encounter ID Performer Location Encounter Start Date Encounter Closed Date Diagnosis/Indication Diagnosis SNOMED-CT Code Diagnosis ICD10 Code Diagnosis Note [id number] Waleska Palumbo [facility] [address] [address] 01/19/2022 14:02:56 01/19/2022 15:08:48 Abnormal uterine bleeding [id number] 9100 N93.9 The patient and I discussed the various causes of abnormal uterine bleeding, including polyps, fibroids, hyperplasi a, atypia, anovulatio n, etc. We reviewed the typical evaluation with labs, pelvic US and possible endometria l biopsy. Briefly discussed the options available for treatment (depending on the results of evaluation ) such as hormonal treatment (OCPs, progestins ), Mirena, endometria l ablation, and surgery. We spent more than 30 minutes face to face. NOTE: will do WWE with US f/u next visit. [id number] Paulie Linn MD [facility] [address],[place] [address] 01/26/2022 14:53:28 01/26/2022 15:41:58 Abnormal uterine bleeding [id number] 9100 N93.[id number] [facility] [address],[place] [address] 01/27/2022 14:09:51 01/27/2022 14:55:13 Abnormal uterine bleeding [id number] 9100 N93.9 Reviewed US results with understand ing verbalized .Because of her Hx of failed ablation, disinteres t in hormonal/m edication options for helping AUB; we agreed on MD consult to discuss further options that meet her goals. Consult to be scheduled Time spent in visit is a total of 15 mins with at least 50% of visit consisting of counseling and review of plan of care. Sexually t ransmitted infectious disease 0813935 A64 [id number] [facility] [address],[place] [address] 02/09/2022 13:51:08 02/09/2022 17:40:57 Gynecologic examination 48369549 Z01.419 Take Calcium with Vitamin D 1200mg daily if not receiving in daily diet. It is strongly advised to have an annual flu shot and up can obtain at most pharmacies . If you have not had a TDap shot in the last 10 years you should obtain one as well. Discussed with patient & provided with informatio n regarding Gardisil vaccine to prevent the 4 strains for HPV that cause cervical cancer if under age 26. Encourage safe sexual practices, to use condoms and limit partners if not already in a monogamous relationsh ip. Do monthly self breast exams. Have mammogram yearly or every other year depending on family history. BRCA testing is now available for patients with strong genetic history of female cancer. If interested contact the office. Engage in daily exercise of low impact aerobic exercise 45-60 minutes 4-5 times weekly. Avoid tobacco and illicit drugs as well as using moderation with alcohol intake less than 1-2 8 oz beverages daily. This lifestyle behavior pattern will lead to less health conditions and longer life span. If BMI greater than 25 weight watchers or dietary consult advised. Patient received above instructio ns, and questions have been answered. If you have any questions please call or respond to this email. Patient was made aware of the patient portal and may obtain a paper copy of today's plan if desired.Pa p/hpv sentSTD Screen updatedGen etic Screen discussedC olon Screen PCPDexa Screen naRoutine Labs PCPMammo next year due Sexually t ransmitted infectious disease 7515587 A64 Requesting HSV testingNev er had outbreak [id number] Paulie Linn MD [facility] [address] [address] 02/11/2022 14:25:17 02/11/2022 15:37:02 Menorrhagia 783834663 N92.0 this patient is a 41-year-ol d female with severe menorrhagi a. She also has severe dysmenorrh ea. Her pain is debilitati ng at the time of menses. She cannot leave the house. She has profound bleeding. She has longstandi ng very heavy bleeding. Her menses are regular. However, they require double protection . Patient has accidents, getting blood on her bedding and clothing. Is affected work. She changes a pad or tampon every hour. She leaks blood around the pad and tampon. This bleeding has a profound impact on her quality of life and her activities of daily living. Talked about treatment options in light of a failed endometria l ablation. Talked about revisiting some medical options and surgical options. She would like to proceed with definitive surgical treatment. We spent over 40 minutes face-to-fa ce. More than 50% was counseling . We made a decision to perform surgery. We agreed to move forward with robotic assisted total hysterecto my and salpingect henri bilateral. [id number] [facility] [address] [address] 03/04/2022 14:24:39 03/04/2022 16:51:40 Urinary symptoms 528257794 R39.9 UA today WNLCx sent Vaginal irritation 77159 6004 N89.8 Suspect yeast on examVagini tis panel sentSTI endocervic al testing sentVulvar care guidelines discussedR x sentR/B of medication discussed and accepted by patient Recent HSV type 1&2 positive blood work - she has never had a genital or mouth lesion. We discussed this result means she is a carrier for this virus, but may or may never have an active outbreak/l esion. To call the office if any outbreaks occur for symptomati c treatment, avoid IC / sharing drinks with any active outbreak or mouth lesions. Condom use encouraged otherwise. Time spent in visit is a total of 30 mins with at least 50% of visit consisting of counseling and review of plan of care. Venereal d isease screening 353012663 Z11.3 [id number] [facility] [address] [address] 04/14/2022 14:50:04 04/14/2022 15:21:28 Tampon retained in vagina 077908509 Z18.89 Retained tampon removed from vagina with ringed forcepsPat ient tolerated the procedure well, no immediate complicati onsTo notify the office with any vaginal symptoms Time spent in visit is a total of 20 mins with at least 50% of visit consisting of counseling and review of plan of care. [id number] Paulie Linn MD [facility] [address] [address] 04/16/2022 15:42:11 04/16/2022 16:48:15 Menorrhagia 070524283 N92.0 this patient is a 41-year-ol d female with severe menorrhagi a and failed endometria l ablation. We agreed to perform total laparoscop ic hysterecto my bilateral salpingect henri. She understand s risks, benefits, and alternativ es. She has complete informed consent process is ready to proceed. [id number] Paulie Linn MD [facility] [address],[place] [address] 04/27/2022 10:21:51 04/27/2022 10:23:37 [id number] Paulie Linn MD [facility] [address],[place] [address] 04/30/2022 15:45:24 04/30/2022 17:22:47 Urinary symptoms 456653935 R39.9 this patient is a 41-year-ol d female presents for postop follow-up. She Reports severe urinary symptoms. She has symptoms consistent with urinary tract infection she will be seen treated with 5 days of Cipro. Otherwise. She has no complaints as far as postoperat atiya pain. She has been doing well. She did not take any narcotic pain medication her incisions are clean dry and intact with the exception of some irritation at the incision sites. Postoperative visit 1836 70018 Z09 [id number] [facility] [address],[place] [address] 05/27/2022 14:13:56 05/27/2022 14:42:31 Vaginitis 62171295 N76.0 Allergy to diflucan tablets but we will trial the cream.Will trial terazol x 3 daysStop if hives occur. Time spent in visit is a total of 15 mins with at least 50% of visit consisting of counseling and review of plan of care. Counseled on medication R/B's, Most common side effects, & use. All questions were answered to patient satisfacti on. [id number] Jemima Beck [facility] [address],[place] [address] 07/19/2022 11:10:11 07/19/2022 14:29:16 Vulval irritation 738484353 N90.89 suspect yeastvagin itis panel sentgc/ct/ trich testing senturine cx sentvulvar care guidelines discussed - d/c use of vagisilall ergy to oral fluconazol e, used topical last month with no issues - rx sent. d/c use if allergic reaction occurs. R/B/A discussed and accepted by patientRTC if symptoms persist past treatment Time spent in visit is a total of 20 mins with at least 50% of visit consisting of counseling and review of plan of care. Venereal d isease screening 741163663 Z11.3 Cloudy urine 7925328 R82 .90 [id number] Jemima Beck [facility] [address],[place] [address] 12/20/2022 15:11:51 12/20/2022 16:03:33 Venereal disease screening 818226104 Z11.3 gc/ct/tric h testing sentblood STI panel sentsafe sexual practices discussed and encouraged RTC for WWE or sooner if needed Time spent in visit is a total of 20 mins with at least 50% of visit consisting of counseling and review of plan of care.encou raged PCP f/u for BP, precaution s reviewed Sexually t ransmitted infectious disease 3673504 A64 [id number]ka [address] [facility] [address] [address] 04/07/2023 14:12:07 04/07/2023 14:45:39 Urinary symptoms 753725847 R39.9 Suspect UTI on urine dipSubject atiya complaints consistent with Urine dip.Rx sent Counseled on medication R/B's, Most common side effects, & use. All questions were answered to patient satisfacti on. Time spent in visit is a total of 26 mins with at least 50% of visit consisting of counseling and review of plan of care. Vaginitis 91304417 N76.0 Vulvar irritation on examTria inolone ointment sent & instructio ns to moisturize daily with crisco oil/olive oil.Swab sent Counseled on medication R/B's, Most common side effects, & use. All questions were answered to patient satisfacti on. Herpes simplex 70021138 B00.9 Hx of HSVOn Suppressiv e therapy.Gloria ellis RF'sRF sent x 1yr Counseled on medication R/B's, Most common side effects, & use. All questions were answered to patient satisfacti on. [id number] [facility] [address] [address] 08/23/2023 16:44:03 08/23/2023 18:20:16 Urinary symptoms 912712371 R39.9 Suspect UTI on urine dip today. Counseled on medication R/B's, Most common side effects, & use. All questions were answered to patient satisfacti on. Time spent in visit is a total of 21 mins with at least 50% of visit consisting of counseling and review of plan of care. Herpes simplex 48161420 B00.9 Hx of HSVOn Suppressiv e therapy.Ne caleb 'sRF sent x 1yr Counseled on medication R/B's, Most common side effects, & use. All questions were answered to patient satisfacti on. Increased frequency of urination 589919135 R35.0 [id number] JOSE SHAW MD [facility] [address] [address] 01/24/2024 12:45:12 01/25/2024 12:46:53 Unintentional weight gain 9658835314 19447 R63.5 - patient reports unintentio nal weight gain, would like to discuss medication s- has tried contrave in the past however d/c'd due to side effects- will check labs- patient to make appointmen t with Dr. Linn for weight loss options Screening mammography 24 714651 Z12.31 Left side sciatica 58188 81473 95712 M54.32 - patient reports worsening pain of the past 2 months- will send referral for PT Gynecologi c examination 83334564 Z01.419 [facility] woman care- Cervical cancer screening: Pap smear not indicated (s/p hysterecto my, benign path)- Breast cancer screening: mammogram ordered- Colon cancer screening: does not qualify- STD testing: declined- hereditary cancer screening: does not qualify for testing Health Concerns Section Related Observation LastModified by Organization Detai ls LastModified Time None Recorded Concern Status LastModified by Organization Details LastModified Time None Recorded Advance Directives Directive N: Payers Encounter Date Sequence Insurance Name Policy Number Policy Figueredo Covered Member ID Figueredo Member ID Guarantor Name 07/19/2022 1 [facility] ON OR AFTER 09/25/20 (MEDICAID REPLACEMENT - HMO) Jael Tabares [id number] Jael Tabares 12/20/2022 1 [facility] ON OR AFTER 09/25/20 (MEDICAID REPLACEMENT - HMO) Jael Tabares [id number] Jael Gera Tabares 04/07/2023 1 [facility] ON OR AFTER 09/25/20 (MEDICAID REPLACEMENT - HMO) Jael Tabares [id number] Jael Gera Tabares 08/23/2023 1 [facility] ON OR AFTER 09/25/20 (MEDICAID REPLACEMENT - HMO) Jael Tabares [id number] Jael Tabares 01/24/2024 1 [facility] ON OR AFTER 09/25/20 (MEDICAID REPLACEMENT - HMO) Jael Tabares [id number] Jael Tabares Notes Date Note Type Note Provider Name and Address Organization Details Recorded Time 07/19/2022 text/html 41yopresents for evaluation of vulvar irritation and itchingsymptoms started about 2 days agopreviously treated for yeast about 1 month ago, symptoms resolved and have now returnedusing vagisil washSA with steady partnerhyst for BCurine cloudydenies any urinary burning, pain, urgency, or frequency [address] [address], [place], [address], [facility] 07/19/2022 13:42:17 12/20/2022 text/html 42yopresents for STI testingrecently found out her partner was unfaithfulno longer with this partner neg vaginal symptomsneg pelvic painneg n/v/f [facility] [address], [place], [address], [facility] 12/20/2022 15:50:29 04/07/2023 text/html Here today for suspected uti and vulvar irritation. Neg pain of abd/pelvis/flank++ urinary sx'sNeg GI sx'sNeg N/V/F/C/DNeg Vag d/c, odor, itching, ++irritation Waleska Palumbo, [facility] [address], [place], [address], [facility] 04/07/2023 14:45:48 08/23/2023 text/html Here today for urgency/frequency, dysuria of voiding x 3 days. Neg pain of abd/pelvis/flankNeg GI sx'sNeg N/V/F/C/DNeg Vag d/c, odor, irritation, itching Waleska Palumbo, [facility] [address], [place], [address], [facility] 08/23/2023 18:02:58 01/24/2024 text/html Presents today f or her annual well-woman exam. Denies abnormal vaginal discharge. She is not sexually active and denies dyspareunia. She has not noticed any changes or masses in her breasts. S/p hysterectomy in 03/2022, negative pathology. Having increased left sided sciatic pain for the past two months. Waking up in the middle of the night with pain. Has trouble walking in the morning. Would also like to discuss weight gain. She reports overall good diet, has been doing intermittent fasting and eliminated all non-water/coffee beverages. She was previously on Contrave however felt very jittery and stopped due to side effects. JOSE SHAW MD [address], [place], [address], [facility] 01/24/2024 23:06:45 OBGyn Episode Ob Episode Information Episode Created Date Number of Fetuses Patient Bloodtype Patient rh Status Prepregnancy Weight lbs Domestic Partner Domestic Partner Phone Father Name Fire Prevention Captain Status 01/20/20 22 1 CLOSED Fetus Data First Name Last Name Admitted to NICU Weight (g) Sex Living Outcome Pediatric Complications Fetus ID Race Codes Race Delivery Type 2466.17 [id number] F Full Term [id number] Vaginal Delivery Lg Calculation Initial Lg Date Initial Exam Date Initial Exam Provider Initial Ultrasound Date Last Menstrual Period Date Ultra Sound Weeks Gestation 0 Eighteen To Twenty Week Lg Update Ultra Sound Date Fundal Height At Umbil Quickening Date Ultra Sound Latest Weeks Gestation Final Lg Confirmed By Final Lg Confirmed Date Final Lg Date Ultra Sound Latest Days Gestation 0 0 Menstrual History Last Menstrual Date Menses Monthly On Bcp Conception Prior Menses Frequency Hcg Plus Date Menarche Onset Age Delivery Information Delivery Date Delivery Type Labor Anesthesia Weeks Gestation Incision Type Labor Labor Length Hrs Delivered By Post Complications Tubal Sterilization Discharge Date Comments 9 37 Discharge Information Feeding Method Contraceptive Method Maternal HG B and HCT Levels
--- OUTSIDE RECORDS SUMMARY | 2024-08-14 13:23 | XMS_ITS | Data Portability ---
Author Organization CHARLES RACIELCata Parra Address [address] [place] [address] Assessment No assessment recorded. Plan of Treatment Reminders Order Date Submit Date Provider Last Modified By Organization Details Last Modified Time Details Appointments None recorded . Lab albumin/ creatini ne, mass ratio, urine 2024 025 [facility], [address] [place], [place] [address]rudolph Mike, [facility] [address], [place], [address], 5 08:24:01 TSH, ultra-se nsitive, serum 2024 025 [facility], [address] [place] [address], [facility] [address], [place], [address], 5 08:24:02 CMP, serum or plasma 2024 025 [facility], [facility] [address], [facility] [address], [place], [address], 5 10:11:32 CBC w/ auto diff 2024 025 [facility], [address] [place] [address] Mike, [facility] [address], [place], [address], 5 10:11:33 lipid panel, serum 2024 025 [facility], [address] [place], [place] [address]rudolph Mckeon, [facility] [address], [place], [address], 5 10:11:31 vaginal pathogen s panel, MARICRUZ+prob e, vaginal fluid 2022 023 [facility], Harry Mckeon, [address], [place], [address], 3 06:16:34 RPR (rapid plasma reagin), serum 2021 022 [facility], [facility], [address], [place], [address], 13:09:17 HIV 1 + 2, meaningf ul use set 2021 022 [facility], [facility], [address], [place], [address], 13:09:18 hepatiti s panel (A+B+C), acute, serum 2021 022 [facility], [facility], [address], [place], [address], 13:09:12 vaginal pathogen s panel, MARICRUZ+prob e, vaginal fluid 2021 022 [facility]ERRING, [facility], [address], [place], [address], 13:09:14 hsv (1+2) igg Ab, serum 2021 022 [facility] HERRING, [facility], [address], [place], [address], 13:09:13 urinalys is complete , reflex culture 2021 022 [facility] ANDERSON[facility]MA, [facility], [address], [place], [address], 2 13:09:16 urinalys is complete , reflex culture 2021 022 [facility], [address], [address], [place], [address], 2 17:08:09 chlamydi a trachoma tis + neisseri a gonorrho eae + trichomo tiago vaginali s DNA panel, MARICRUZ+prob e, unspecif ied specimen 2021 022 [facility], [address] [place] [address], [address], [place], [address], 2 17:08:09 Pap smear tests - FPAR 2.0 set 2021 022 [facility], [address] [place] [address], [address], [place], [address], 2 20:08:43 urinalys is, dipstick 2021 022 In-Office Order, Internal Use Only DO Not Attach Compendium DO Not Attach Compendium, Do Not Delete/merge, [id number] 2 15:08:04 bacteria l vaginosi s + vaginiti s panel, vaginal 2021 022 [facility], [address] [place] [address], [address], [place], [address], 2 06:14:26 Referral None recorded . Procedures None recorded . Surgeries None recorded . Imaging MAMMO, screenin g, bilatera l [address] ([employer]), [address] [facility], [place], [address], 3 16:20:24 US, pelvis, transabd ominal + transvag inal - Painful, crampy periods after uterine ablation procedur e 2021 022 [facility], [address], [address], [place], [address], 3 15:24:39 US, pelvis, transabd ominal + transvag inal - Painful, crampy periods after uterine ablation procedur e 2021 [facility] [address], [address], [place], [address], 2 09:07:42 Medication Orders albutero l sulfate HFA 90 mcg/actu ation aerosol inhaler 2024 025 [facility] #[id number], [address] [place] [address], [id number], 5 16:26:32 hydrochl orothiaz eloisa 12.5 mg capsule 2024 025 [facility] #04009, [address], [id number], 5 16:23:35 hydrochl orothiaz eloisa 12.5 mg capsule 2021 022 [facility] #[id number], [address], [id number], 3 16:00:11 fluconaz ole 150 mg tablet 2021 022 [facility] #83853, [address], [id number], 2 12:53:06 nitrofur antoin monohydr ate/macr ocrystal s 100 mg capsule 2021 022 [facility] #39741, [address] [place] [address], [id number], 5 15:43:52 acyclovi r 400 mg tablet 2021 022 [facility] #16942, [address], [id number], 3 15:59:53 Patient TargetsNo targets recorded. Patient Instructions Encounter Date Encounter Id Patient Instructions Last Modified By Organization Details Last Modified Time 04/17/2021 [id number] A healthy lifestyle: care instructions Not available 04/17/2021 15:08:04 10/06/2021 [id number] A healthy lifestyle: care instructions Not available 10/06/2021 13:29:57 01/06/2022 [id number] high blood pressure: care instructions Not available 01/06/2022 12:28:31 dash diet: care instructions Not available 01/06/2022 12:28:31 low sodium diet (2,000 milligram): care instructions Not available 01/06/2022 12:28:31 how to read a food label to limit sodium: care instructions Not available 01/06/2022 12:28:31 home blood pressure test: about this test Not available 01/06/2022 12:28:31 03/15/2023 [id number] body mass index: care instructions Not available 03/15/2023 16:30:09 learning about healthy weight [email or web address] Not available 03/15/2023 16:30:09 05/23/2024 [id number] cough: care instructions [email or web address] Not available 05/23/2024 16:26:28 learning about high blood pressure [email or web address] Not available 05/23/2024 16:23:29 A healthy lifestyle: care instructions [email or web address] Not available 05/23/2024 16:23:29 Reason for Referral None Reported. Results Created Date Observation Date Name Description Value Unit Range Abnormal Flag Note LastModifiedBy Organization Detail LastModifiedTime 04/17/19 22 04/20/2021 NUSWA B VAGIN ITIS PLUS (VG+) atopobium vaginae HIGH - 2 score abnormal Not Available [facility] ([facility]) [address] [facility], [place], [address], 04/21/2021 06:14:26 04/17/19 22 04/20/2021 NUSWA B VAGIN ITIS PLUS (VG+) bvab 2 HIGH - 2 score abnormal Not Available [facility] ([facility]) [address] [facility], [place], [address], 04/21/2021 06:14:26 04/17/19 22 04/20/2021 [facility] ([facility]G+) megasphaera 1 HIGH - 2 score abnormal Calcu late total score by nick day the 3 indiv idual bacte rial vagin osis (BV) marke r score s toget her. Total score is inter prete d as follo ws: Total score 0-1: Indic ates the absen ce of BV. Total score 2: Indet ermin ate for BV. Addit ional clini freddie data shoul d be evalu ated to estab shanna a diagn osis. Total score 3-6: Indic ates the prese nce of BV. This test was devel oped and its perfo rmanc e darrick cteri stics deter mined by [facility]. It has not been clear ed or appro lilly by the Food and Drug Admin istra tion. Not Available [facility] ([facility]) [address] [facility], [place], [address], 04/21/2021 06:14:26 04/17/19 22 04/20/2021 NUA B VAGIN ITIS PLUS (VG+) camille albicans, MARICRUZ NEGATI VE negati ve Not Available [facility] ([facility]) [address] [facility], [place], [address], 04/21/2021 06:14:26 04/17/19 22 04/20/2021 NUA B VAGIN ITIS PLUS (VG+) camille glabrata, MARICRUZ NEGATI VE negati ve Not Available [facility] ([facility]) [address] [facility], [place], [address], 04/21/2021 06:14:26 04/17/19 22 04/20/2021 NUA B VAGIN ITIS PLUS (VG+) trich vag by MARICRUZ NEGATI VE negati ve Not Available [facility] ([facility]) [address] [facility], [place], [address], 04/21/2021 06:14:26 04/17/19 22 04/20/2021 NUA B VAGIN ITIS PLUS (VG+) chlamydia trachomatis, MARICRUZ NEGATI VE negati ve Not Available [facility] ([facility]) [address] [facility], [place], [address], 04/21/2021 06:14:26 04/17/19 22 04/20/2021 NUA B VAGIN ITIS PLUS (VG+) neisseria gonorrhoeae, MARICRUZ NEGATI VE negati ve Not Available [facility] ([facility]) [address] [facility], [place], [address], 04/21/2021 06:14:26 04/17/19 22 04/21/2021 IGP, APTIM A HPV diagnosis: COMMEN T NEGAT MANNY FOR INTRA EPITH ELIAL LESIO N OR MALIG JEMMA . REACT MANNY CELLU LAR PETIT ES AND/O R REPAI R ARE PRESE NT. Not Available [facility] ([facility]) [address] [facility], [place], [address], 04/21/2021 20:08:43 04/17/19 22 04/21/2021 IGP, APTIM A HPV specimen adequacy: COMMEN T Satis facto ry for evalu ation . Endoc ervic al and/o r squam ous metap lasti c cells (endo cervi freddie compo nent) are prese nt. Not Available [facility] ([facility]) [address] [facility], [place], [address], 04/21/2021 20:08:43 04/17/19 22 04/21/2021 IGP, APTIM A HPV clinician provided ICD10: PAVEL Ralph Z11.3 Z01.4 19 Not Available [facility] ([facility]) [address] [place], [address], 04/21/2021 20:08:43 04/17/19 22 04/21/2021 IGP, APTIM A HPV performed by: PAVEL Aden tte Cortes , Cytot echno logis t Not Available [facility] ([facility]) [address] [place], [address], 04/21/2021 20:08:43 04/17/19 22 04/21/2021 IGP, APTIM A HPV electronical ly signed by: PAVEL art MD, Patho logis t Not Available [facility] ([facility]) [address] [place], [address], 04/21/2021 20:08:43 04/17/19 22 04/21/2021 IGP, APTIM A HPV . . Not Available [facility] ([facility]) [address] [place], [address], 04/21/2021 20:08:43 04/17/19 22 04/21/2021 IGP, APTIM A HPV note: PAVEL Ralph The Pap smear is a scree seferino test desig carmella to aid in the detec tion of robinson ligna nt and malig nant condi tions of the uteri ne cervi x. It is not a diagn ostic proce dure and shoul d not be used as the sole means of detec ting cervi freddie cance r. Both false -posi tive and false -nega tive repor ts do occur . Not Available [facility] ([facility]) [address] [place], [address], 04/21/2021 20:08:43 04/17/19 22 04/21/2021 IGP, APTIM A HPV test methodology: COMMEN T This liqui d based ThinP rep(R ) pap test was yumiko weir with the use of an image guide obdulio calderon Not Available [facility] ([facility]) [address] [facility], [place], [address], 04/21/2021 20:08:43 04/17/19 22 04/21/2021 IGP, APTIM A HPV HPV aptima NEGATI VE negati ve This nucle ic acid ampli ficat ion test detec ts fourt een high- risk HPV types (16,1 8,31, 33,35 ,39,4 5,51, 52,56 ,58,5 9,66, 68) witho ut diffe renti ation . Not Available [facility] ([facility]) [address] [facility], [place], [address], 04/21/2021 20:08:43 04/17/19 22 04/17/2021 urina lysis , dipst ick Leukocytes Trace Not Available In-Offi ce Order Internal Use Only DO Not Attach Compendium DO Not Attach Compendium, Do Not Delete/merge, [id number] 04/17/2021 14:24:14 04/17/19 22 04/17/2021 urina lysis , dipst ick Nitrite positi ve Not Available In-Office Order Internal Use Only DO Not Attach Compendium DO Not Attach Compendium, Do Not Delete/merge, [id number] 04/17/2021 14:24:14 04/17/19 22 04/17/2021 urina lysis , dipst ick Urobilinogen .2 Not Available In-Of fice Order Internal Use Only DO Not Attach Compendium DO Not Attach Compendium, Do Not Delete/merge, [id number] 04/17/2021 14:24:14 04/17/19 22 04/17/2021 urina lysis , dipst ick Protein Negati ve Not Available In-Office Order Internal Use Only DO Not Attach Compendium DO Not Attach Compendium, Do Not Delete/merge, [id number] 04/17/2021 14:24:14 04/17/19 22 04/17/2021 urina lysis , dipst ick pH 6.0 Not Available In-Office Order Internal Use Only DO Not Attach Compendium DO Not Attach Compendium, Do Not Delete/merge, 04/17/2021 14:24:14 04/17/19 22 04/17/2021 urina lysis , dipst ick Blood Non-He molyze d: Trace Not Available In-Office Order Internal Use Only DO Not Attach Compendium DO Not Attach Compendium, Do Not Delete/merge, 04/17/2021 14:24:14 04/17/19 22 04/17/2021 urina lysis , dipst ick Specific [place] 1.030 Not Available In-Off ice Order Internal Use Only DO Not Attach Compendium DO Not Attach Compendium, Do Not Delete/merge, 04/17/2021 14:24:14 04/17/19 22 04/17/2021 urina lysis , dipst ick Ketone Negati ve Not Available In-Office Order Internal Use Only DO Not Attach Compendium DO Not Attach Compendium, Do Not Delete/merge, 04/17/2021 14:24:14 04/17/19 22 04/17/2021 urina lysis , dipst ick Bilirubin Negati ve Not Available In-Office Order Internal Use Only DO Not Attach Compendium DO Not Attach Compendium, Do Not Delete/merge, 04/17/2021 14:24:14 04/17/19 22 04/17/2021 urina lysis , dipst ick Glucose Negati ve Not Available In-Office Order Internal Use Only DO Not Attach Compendium DO Not Attach Compendium, Do Not Delete/merge, 04/17/2021 14:24:14 04/17/19 22 04/17/2021 urina lysis , dipst ick Appearance Cloudy Not Available In-Offi ce Order Internal Use Only DO Not Attach Compendium DO Not Attach Compendium, Do Not Delete/merge, 04/17/2021 14:24:14 04/17/19 22 04/17/2021 urina lysis , dipst ick Color Dark Yellow Not Available In-Office Order Internal Use Only DO Not Attach Compendium DO Not Attach Compendium, Do Not Delete/merge, [id number] 04/17/2021 14:24:14 10/07/19 22 10/07/2021 UA WITH CULTU RE REFLE X specific gravity TNP Test not perfo rmed Not Available [facility] ([facility]) [address] [facility], [place], [address], 10/12/2021 17:08:09 10/07/19 22 10/07/2021 UA WITH CULTU RE REFLE X pH TNP Test not perfo rmed Not Available [facility] ([facility]) [address] [facility], [place], [address], 10/12/2021 17:08:09 10/07/19 22 10/07/2021 UA WITH CULTU RE REFLE X urine-color Red yellow abnormal Test not perfo rmed. Unabl e to obtai n accur ate resul t for this test due to inten se color of speci men. Not Available [facility] ([facility]) [address] [facility], [place], [address], 10/12/2021 17:08:09 10/07/19 22 10/07/2021 UA WITH CULTU RE REFLE X appearance Cloudy clear abnormal Not Available [facility] ([facility]) [address] [place], [address], 10/12/2021 17:08:09 10/07/19 22 10/07/2021 UA WITH CULTU RE REFLE X WBC esterase IT DIRECTOR Not Available [facility] ([facility]) [address] [place], [address], 10/12/2021 17:08:09 10/07/19 22 10/07/2021 UA WITH CULTU RE REFLE X protein TNP Test not perfo rmed Not Available [facility] ([facility]) [address] [place], [address], 10/12/2021 17:08:09 10/07/19 22 10/07/2021 UA WITH CULTU RE REFLE X glucose TNP Test not perfo rmed Not Available [facility] ([facility]) [address] [facility], [place], [address], 10/12/2021 17:08:09 10/07/19 22 10/07/2021 UA WITH CULTU RE REFLE X ketones TNP Test not perfo rmed Not Available [facility] ([facility]) [address] [facility], [place], [address], 10/12/2021 17:08:09 10/07/19 22 10/07/2021 UA WITH CULTU RE REFLE X occult blood IT DIRECTOR Not Available [facility] ([facility]) [address] [facility], [place], [address], 10/12/2021 17:08:09 10/07/19 22 10/07/2021 UA WITH CULTU RE REFLE X bilirubin IT DIRECTOR Not Available [facility] ([facility]) [address] [place], [address], 10/12/2021 17:08:09 10/07/19 22 10/07/2021 UA WITH CULTU RE REFLE X urobilinogen ,semi-qn IT DIRECTOR Not Available [facility] ([facility]) [address] [place], [address], 10/12/2021 17:08:09 10/07/19 22 10/07/2021 UA WITH CULTU RE REFLE X nitrite, urine IT DIRECTOR Not Available [facility] ([facility]) [address] [place], [address], 10/12/2021 17:08:09 10/07/19 22 10/07/2021 UA WITH CULTU RE REFLE X microscopic examination See below: Micro scopi c was indic ated and was perfo rmed. Not Available [facility] ([facility]) [address], [place], [address], 10/12/2021 17:08:09 10/07/19 22 10/07/2021 UA WITH CULTU RE REFLE X WBC 11-30 /hpf 0 - 5 abnormal Not Available [facility] ([facility]) [address], [place], [address], 10/12/2021 17:08:09 10/07/19 22 10/07/2021 UA WITH CULTU RE REFLE X RBC >30 /hpf 0 - 2 abnormal Not Available [facility] ([facility]) [address] [facility], [place], [address], 10/12/2021 17:08:09 10/07/19 22 10/07/2021 UA WITH CULTU RE REFLE X epithelial cells (non renal) 0-10 /hpf 0 - 10 Not Available [facility] ([facility]) [address] [facility], [place], [address], 10/12/2021 17:08:09 10/07/19 22 10/07/2021 UA WITH CULTU RE REFLE X epithelial cells (renal) IT DIRECTOR Not Available [facility] ([facility]) [address] [facility], [place], [address], 10/12/2021 17:08:09 10/07/19 22 10/07/2021 UA WITH CULTU RE REFLE X casts None seen /lpf none seen Not Available [facility] ([facility]) [address] [facility], [place], [address], 10/12/2021 17:08:09 10/07/19 22 10/07/2021 UA WITH CULTU RE REFLE X cast type IT DIRECTOR Not Available [facility] ([facility]) [address] [facility], [place], [address], 10/12/2021 17:08:09 10/07/19 22 10/07/2021 UA WITH CULTU RE REFLE X crystals IT DIRECTOR Not Available [facility] ([facility]) [address], [place], [address], 10/12/2021 17:08:09 10/07/19 22 10/07/2021 UA WITH CULTU RE REFLE X crystal type IT DIRECTOR Not Available [facility] ([facility]) [address], [place], [address], 10/12/2021 17:08:09 10/07/19 22 10/07/2021 UA WITH CULTU RE REFLE X mucus threads Presen t not estab. Not Available [facility] ([facility]) [address], [place], [address], 10/12/2021 17:08:09 10/07/19 22 10/07/2021 UA WITH CULTU RE REFLE X bacteria Few none seen/f ew Not Available [facility] ([facility]) [address], [place], [address], 10/12/2021 17:08:09 10/07/19 22 10/07/2021 UA WITH CULTU RE REFLE X yeast IT DIRECTOR Not Available [facility] ([facility]) [address], [place], [address], 10/12/2021 17:08:09 10/07/19 22 10/07/2021 UA WITH CULTU RE REFLE X trichomonas IT DIRECTOR Not Available [facility] ([facility]) [address] [facility], [place], [address], 10/12/2021 17:08:09 10/07/19 22 10/07/2021 UA WITH CULTU RE REFLE X comment IT DIRECTOR Not Available [facility] ([facility]) [address] [facility], [place], [address], 10/12/2021 17:08:09 10/07/19 22 10/07/2021 UA WITH CULTU RE REFLE X urinalysis reflex Commen t This speci men has refle xed to a Urine Cultu re. Not Available [facility] ([facility]) [address] [place], [address], 10/12/2021 17:08:09 10/07/19 22 10/12/2021 UA WITH CULTU RE REFLE X urine culture, routine Final report abnormal Not Available [facility] ([facility]) [address] [facility], [place], [address], 10/12/2021 17:08:09 10/07/19 22 10/12/2021 UA WITH CULTU RE REFLE X result 1 Klebsi don pneumo niae abnormal Cefaz ismael <=4 ug/mL Cefaz ismael with an BRIGETTE <=16 predi cts susce ptibi lity to the oral agent s cefac sravani, cefdi princess, cefpo doxim e, cefpr ozil, cefur oxime , cepha lexin , and lorac arbef when used for thera py of uncom plica louis urina ry tract infec tions due to E. coli, Klebs iella pneum oniae , and Prote us mirab ilis. 25,00 0-50, 000 colon y formi ng units per mL Not Available [facility] ([facility]) [address] [place], [address], 10/12/2021 17:08:09 10/07/19 22 10/12/2021 UA WITH CULTU RE REFLE X antimicrobia l susceptibili ty Commen t S = Susce ptibl e; I = Inter media te; R = Resis tant P = Posit manny; N = Negat manny MICS are expre ssed in micro grams per mL Antib iotic RSLT# 1 RSLT# 2 RSLT# 3 RSLT# 4 Amoxi cilli n/Cla vulan ic Acid S Ampic illin R Cefep ozzie S Ceftr iaxon e S Cefur oxime S Cipro floxa madi S Ertap enem S Genta micin S Imipe nem S Levof loxac in S Merop enem S Nitro furan toin S Piper acill in/Ta zobac dangelo S Tetra cycli ne S Tobra mycin S Trime thopr im/Holden lfa S Not Available [facility] ([facility]) [address] [facility], [place], [address], 10/12/2021 17:08:09 10/07/19 22 10/08/2021 CT, NG, TRICH VAG BY MARICRUZ chlamydia by MARICRUZ Negati ve negati ve Not Available [facility] ([facility]) [address] [place], [address], 10/12/2021 17:08:09 10/07/19 22 10/08/2021 CT, NG, TRICH VAG BY MARICRUZ gonococcus by MARICRUZ Negati ve negati ve Not Available [facility] ([facility]) [address] [place], [address], 10/12/2021 17:08:09 10/07/19 22 10/08/2021 CT, NG, TRICH VAG BY MARICRUZ trich vag by MARICRUZ Negati ve negati ve Not Available [facility] ([facility]) [address] [place], [address], 10/12/2021 17:08:09 01/07/20 22 01/07/2022 ACUTE HEPAT ITIS hep A Ab, IgM Negati ve negati ve Not Available [facility] ([facility]) [address] [place], [address], 01/08/2022 13:09:12 01/07/20 22 01/07/2022 ACUTE HEPAT ITIS HBsAg screen Negati ve negati ve Not Available [facility] ([facility]) [address] [place], [address], 01/08/2022 13:09:12 01/07/20 22 01/07/2022 ACUTE HEPAT ITIS hep B core Ab, IgM Negati ve negati ve Not Available [facility] ([facility]) [address] [facility], [place], [address], 01/08/2022 13:09:12 01/07/2001/07/2022 ACUTE HEPAT ITIS HCV Ab <0.1 s/co_ ratio 0.0-0. 9 Not Available [facility] ([facility]) [address] [facility], [place], [address], 01/08/2022 13:09:12 01/07/2001/08/2022 CT, NG, TRICH VAG BY MARICRUZ chlamydia by MARICRUZ - Dupli dino proce dure order ed. Not Available [facility] ([facility]) [address] [facility], [place], [address], 01/08/2022 13:09:15 01/07/2001/08/2022 CT, NG, TRICH VAG BY MARICRUZ gonococcus by MARICRUZ - Dupli dino proce dure order ed. Not Available [facility] ([facility]) [address] [facility], [place], [address], 01/08/2022 13:09:15 01/07/2001/08/2022 CT, NG, TRICH VAG BY MARICRUZ trich vag by MARICRUZ - Dupli dino proce dure order ed. Not Available [facility] ([facility]) [address] [facility], [place], [address], 01/08/2022 13:09:15 01/07/2001/07/2022 RPR, RFX QN RPR/C ONFIR M TP RPR Non Reacti ve nonrea ctive Not Available [facility] ([facility]) [address] [facility], [place], [address], 01/08/2022 13:09:17 01/07/2001/07/2022 HIV AB/P2 4 AG WITH REFLE X HIV Ab/P24 Ag screen Non Reacti ve nonrea ctive HIV Negat manny HIV-1 /HIV- 2 antib odies and HIV-1 p24 antig en were NOT detec louis. There is no labor atory evide nce of HIV infec tion. Not Available [facility] ([facility]) [address] [facility], [place], [address], 01/08/2022 13:09:18 01/07/2001/08/2022 URINE CULTU RE, ROUTI NE urine culture, routine Final report Not Available [facility] ([facility]) [address] [place], [address], 01/08/2022 13:09:16 01/07/2001/08/2022 URINE CULTU RE, ROUTI NE result 1 Commen t Mixed uroge nital noemi Less than 10,00 0 colon ies/m L Not Available [facility] ([facility]) [address] [facility], [place], [address], 01/08/2022 13:09:16 01/07/2001/07/2022 UA/M W/RFL X CULTU RE, ROUTI NE specific gravity 1.023 1.005- 1.030 Not Available [facility] ([facility]) [address] [facility], [place], [address], 01/08/2022 13:09:16 01/07/2001/07/2022 UA/M W/RFL X CULTU RE, ROUTI NE pH 6.0 5.0-7. 5 Not Available [facility] ([facility]) [address] [place], [address], 01/08/2022 13:09:16 01/07/2001/07/2022 UA/M W/RFL X CULTU RE, ROUTI NE urine-color Yellow yellow Not Available [facility] ([facility]) [address] [place], [address], 01/08/2022 13:09:16 01/07/2001/07/2022 UA/M W/RFL X CULTU RE, ROUTI NE appearance Cloudy clear abnormal Not Available [facility] ([facility]) [address] [place], [address], 01/08/2022 13:09:16 01/07/20 22 01/07/2022 UA/M W/RFL X CULTU RE, ROUTI NE WBC esterase Trace negati ve abnormal Not Available [facility] ([facility]) [address] [place], [address], 01/08/2022 13:09:16 01/07/2001/07/2022 UA/M W/RFL X CULTU REKUSUM NE protein Trace negati ve/tra ce Not Available [facility] ([facility]) [address] [place], [address], 01/08/2022 13:09:16 01/07/2001/07/2022 UA/M W/RFL X CULTKenan REKUSUM NE glucose Trace negati ve abnormal Not Available [facility] ([facility]) [address] [place], [address], 01/08/2022 13:09:16 01/07/20 22 01/07/2022 UA/M W/RFL X CULTKenan REKUSUM NE ketones Negati ve negati ve Not Available [facility] ([facility]) [address] [place], [address], 01/08/2022 13:09:16 01/07/20 22 01/07/2022 UA/M W/RFL X CULTKenan RE ROUTI NE occult blood Negati ve negati ve Not Available [facility] ([facility]) [address] [place], [address], 01/08/2022 13:09:16 01/07/20 22 01/07/2022 UA/M W/RFL X CULTU RE ROUTI NE bilirubin Negati ve negati ve Not Available [facility] ([facility]) [address] [facility] [place], [address], 01/08/2022 13:09:16 01/07/2001/07/2022 UA/M W/RFL X CULTU RE, ROUTI NE urobilinogen ,semi-qn 0.2 mg/dL 0.2-1. 0 Not Available [facility] ([facility]) [address] [facility], [place], [address], 01/08/2022 13:09:16 01/07/2001/07/2022 UA/M W/RFL X CULTU RE, ROUTI NE nitrite, urine Negati ve negati ve Not Available [facility] ([facility]) [address] [facility], [place], [address], 01/08/2022 13:09:16 01/07/2001/07/2022 UA/M W/RFL X CULTU RE, ROUTI NE microscopic examination See below: Micro scopi c was indic ated and was perfo rmed. Not Available [facility] ([facility]) [address] [facility], [place], [address], 01/08/2022 13:09:16 01/07/2001/07/2022 UA/M W/RFL X CULTU RE, ROUTI NE urinalysis reflex Commen t This speci men has refle xed to a Urine Cultu re. Not Available [facility] ([facility]) [address] [facility], [place], [address], 01/08/2022 13:09:16 01/07/2001/07/2022 MICRO SCOPI C EXAMI NATIO N WBC 0-5 /hpf 0-5 Not Available [facility] ([facility]) [address] [facility], [place], [address], 01/08/2022 13:09:15 01/07/2001/07/2022 MICRO SCOPI C EXAMI NATIO N RBC None seen /hpf 0-2 Not Available [facility] ([facility]) [address] [facility], [place], [address], 01/08/2022 13:09:15 01/07/2001/07/2022 MICRO SCOPI C EXAMI NATIO N epithelial cells (non renal) >10 /hpf 0-10 abnormal Not Available [facility] ([facility]) [address] [facility], [place], [address], 01/08/2022 13:09:15 01/07/2001/07/2022 MICRO SCOPI C EXAMI NATIO N casts None seen /lpf nonese en Not Available [facility] ([facility]) [address] [facility], [place], [address], 01/08/2022 13:09:15 01/07/20 22 01/07/2022 MICRO SCOPI C EXAMI NATIO N crystals Presen t n/a abnormal Not Available [facility] ([facility]) [address] [facility], [place], [address], 01/08/2022 13:09:15 01/07/2001/07/2022 MICRO SCOPI C EXAMI NATIO N crystal type Commen t n/a abnormal Non-s pecif ic cryst als which can not be ident ified by domingoi roxi carlin metho ds. Favor Medic ation type. Not Available [facility] ([facility]) [address] [facility], [place], [address], 01/08/2022 13:09:15 01/07/20 22 01/07/2022 MICRO SCOPI C EXAMI NATIO N bacteria Few nonese en/few Not Available [facility] ([facility]) [address] [facility], [place], [address], 01/08/2022 13:09:15 01/07/20 22 01/08/2022 NUSWA B VAGIN ITIS PLUS (VG+) atopobium vaginae High - 2 score abnormal Not Available [facility] ([facility]) [address] [facility], [place], [address], 01/08/2022 13:09:14 01/07/2001/08/2022 NUSWA B VAGIN ITIS PLUS (VG+) bvab 2 High - 2 score abnormal Not Available [facility] ([facility]) [address] [place], [address], 01/08/2022 13:09:14 01/07/20 22 01/08/2022 NUA B VAGIN ITIS PLUS (VG+) megasphaera 1 High - 2 score abnormal Calcu late total score by nick day the 3 indiv idual bacte rial vagin osis (BV) marke r score s toget her. Total score is inter prete d as follo ws: Total score 0-1: Indic ates the absen ce of BV. Total score 2: Indet ermin ate for BV. Addit ional clini freddie data shoul d be evalu ated to estab shanna a diagn osis. Total score 3-6: Indic ates the prese nce of BV. This test was devel oped and its perfo rmanc e darrick cteri stics deter mined by [facility]. It has not been clear ed or appro lilly by the Food and Drug Admin istra tion. Not Available [facility] ([facility]) [address] [place], [address], 01/08/2022 13:09:14 01/07/2001/08/2022 NUA B VAGIN ITIS PLUS (VG+) camille albicans, MARICRUZ Negati ve negati ve Not Available [facility] ([facility]) [address] [place], [address], 01/08/2022 13:09:14 01/07/2001/08/2022 NUA B VAGIN ITIS PLUS (VG+) camille glabrata, MARICRUZ Negati ve negati ve Not Available [facility] ([facility]) [address] [place], [address], 01/08/2022 13:09:14 01/07/2001/08/2022 NUSWA B VAGIN ITIS PLUS (VG+) trich vag by MARICRUZ Negati ve negati ve Not Available [facility] ([facility]) [address] [facility], [place], [address], 01/08/2022 13:09:14 01/07/2001/08/2022 NUA B VAGIN ITIS PLUS (VG+) chlamydia trachomatis, MARICRUZ Negati ve negati ve Not Available [facility] ([facility]) [address] [facility], [place], [address], 01/08/2022 13:09:14 01/07/2001/08/2022 NUA B VAGIN ITIS PLUS (VG+) neisseria gonorrhoeae, MARICRUZ Negati ve negati ve Not Available [facility] ([facility]) [address] [facility], [place], [address], 01/08/2022 13:09:14 01/07/2001/07/2022 HSV 1 AND 2-SPE C AB, IGG W/RFX hsv 1 IgG, type spec 18.90 index 0.00-0 .90 above high normal Negat manny <0.91 Equiv ocal 0.91 - 1.09 Posit manny >1.09 Note: Negat manny indic ates no antib odies detec louis to HSV-1 . Equiv ocal may sugge st early infec tion. If clini tammy appro priat e, retes t at later date. Posit manny indic ates antib odies detec louis to HSV-1 . Not Available [facility] ([facility]) [address] [facility], [place], [address], 01/08/2022 13:09:13 01/07/20 22 01/07/2022 HSV 1 AND 2-SPE C AB, IGG W/RFX hsv 2 IgG, type spec 3.44 index 0.00-0 .90 above high normal Negat manny <0.91 Equiv ocal 0.91 - 1.09 Posit manny >1.09 Note: Negat manny indic ates no HSV-2 antib odies detec louis. Posit manny indic ates HSV-2 antib odies detec louis. Equiv ocal and low posit manny HSV-2 scree ns (Inde x 0.91- 5.00) may be false posit manny and are refle xed to suppl ement al testi ng in accor dance with CDC guide lines . Not Available [facility] ([facility]) [address] [facility], [place], [address], 01/08/2022 13:09:13 01/07/2001/07/2022 HSV-2 IGG SUPPL EMENT AL TEST hsv-2 IgG supplemental test Positi ve negati ve abnormal Note: Posit manny suppl ement al testi ng indic ates the prese nce of detec table IgG antib odies to HSV-2 . Negat manny suppl ement al testi ng does not confi rm the prese nce of IgG antib odies to HSV-2 ; recom mend re-te sting in 2 to 4 weeks if clini tammy indic ated. Not Available [facility] ([facility]) [address] [facility], [place], [address], 01/08/2022 13:09:13 01/07/20 22 01/07/2022 INTER PRETA TION: interpretati on: Commen t Negat manny Not infec louis with HCV, unles s recen t infec tion is suspe cted or other evide nce exist s to indic ate HCV infec tion. Not Available [facility] ([facility]) [address] [facility], [place], [address], 01/08/2022 13:09:12 03/15/20 23 03/17/2023 NUSWA B VAGIN ITIS PLUS (VG+) atopobium vaginae Low - 0 score Not Available [facility] ([facility]) [address] [facility], [place], [address], 03/19/2023 06:16:34 03/15/20 23 03/17/2023 NUA B VAGIN ITIS PLUS (VG+) bvab 2 Low - 0 score Not Available [facility] ([facility]) [address] [place], [address], 03/19/2023 06:16:34 03/15/20 23 03/17/2023 NUA B VAGIN ITIS PLUS (VG+) megasphaera 1 Low - 0 score Calcu late total score by nick day the 3 indiv idual bacte rial vagin osis (BV) marke r score s toget her. Total score is inter prete d as follo ws: Total score 0-1: Indic ates the absen ce of BV. Total score 2: Indet ermin ate for BV. Addit ional clini freddie data shoul d be evalu ated to estab shanna a diagn osis. Total score 3-6: Indic ates the prese nce of BV. This test was devel oped and its perfo rmanc e darrick cteri stics deter mined by [facility]. It has not been clear ed or appro lilly by the Food and Drug Admin istra tion. Not Available [facility] ([facility]) [address] [facility], [place], [address], 03/19/2023 06:16:34 03/15/20 23 03/17/2023 NUA B VAGIN ITIS PLUS (VG+) camille albicans, MARICRUZ Negati ve negati ve Not Available [facility] ([facility]) [address] [place], [address], 03/19/2023 06:16:34 03/15/20 23 03/17/2023 NUA B VAGIN ITIS PLUS (VG+) camille glabrata, MARICRUZ Negati ve negati ve Not Available [facility] ([facility]) [address] [place], [address], 03/19/2023 06:16:34 03/15/20 23 03/19/2023 NUSWA B VAGIN ITIS PLUS (VG+) trich vag by MARICRUZ Negati ve negati ve Not Available [facility] ([facility]) [address] [facility], [place], [address], 03/19/2023 06:16:34 03/15/20 23 03/19/2023 NUA B VAGIN ITIS PLUS (VG+) chlamydia trachomatis, MARICRUZ Negati ve negati ve Not Available [facility] ([facility]) [address] [facility], [place], [address], 03/19/2023 06:16:34 03/15/2003/19/2023 NUA B VAGIN ITIS PLUS (VG+) neisseria gonorrhoeae, MARICRUZ Negati ve negati ve Not Available [facility] ([facility]) [address] [facility], [place], [address], 03/19/2023 06:16:34 06/16/1906/16/2024 ALBUM IN/CR EATIN INE RATIO ,URIN E creatinine, urine 171.9 mg/dL notest ab. Not Available [facility] ([facility]) [address] [facility], [place], [address], 06/16/2024 08:24:00 06/16/1906/16/2024 ALBUM IN/CR EATIN INE RATIO ,URIN E albumin, urine 9.9 ug/mL notest ab. Not Available [facility] ([facility]) [address] [place], [address], 06/16/2024 08:24:00 06/16/19 25 06/16/2024 ALBUM IN/CR EATIN INE RATIO ,URIN E alb/creat ratio 6 mg/g_ creat 0-29 Yumiko l: 0 - 29 Moder ately incre ased: 30 - 300 Sever braulio incre ased: >300 Not Available [facility] ([facility]) [address] [place], [address], 06/16/2024 08:24:00 06/16/19 25 06/16/2024 TSH RFX ON ABNOR MAL TO FREE T4 TSH 1.670 uIU/m L 0.450- 4.500 Not Available [facility] ([facility]) [address] [place], [address], 06/16/2024 08:24:02 06/16/19 25 06/16/2024 LIPID PANEL cholesterol, total 215 mg/dL 100-19 9 above high normal Not Available [facility] ([facility]) [address] [place], [address], 06/16/2024 10:11:31 06/16/19 25 06/16/2024 LIPID PANEL triglyceride s 181 mg/dL 0-149 above high normal Not Available [facility] ([facility]) [address] [place], [address], 06/16/2024 10:11:31 06/16/19 25 06/16/2024 LIPID PANEL HDL cholesterol 54 mg/dL >39 Not Available [facility] ([facility]) [address] [place], [address], 06/16/2024 10:11:31 06/16/19 25 06/16/2024 LIPID PANEL VLDL cholesterol freddie 32 mg/dL 5-40 Not Available [facility] ([facility]) [address] [place], [address], 06/16/2024 10:11:31 06/16/19 25 06/16/2024 LIPID PANEL LDL chol calc ([facility]) 129 mg/dL 0-99 above high normal Not Available [facility] ([facility]) [address] [place], [address], 06/16/2024 10:11:31 06/16/19 25 06/16/2024 COMP. METAB OLIC PANEL (14) glucose 86 mg/dL 70-99 Not Available [facility] ([facility]) [address] [place], [address], 06/16/2024 10:11:32 06/16/19 25 06/16/2024 COMP. METAB OLIC PANEL (14) BUN 11 mg/dL 6-24 Not Available [facility] ([facility]) [address] [place], [address], 06/16/2024 10:11:32 06/16/19 25 06/16/2024 COMP. METAB OLIC PANEL (14) creatinine 0.80 mg/dL 0.57-1 .00 Not Available [facility] ([facility]) [address] [place], [address], 06/16/2024 10:11:32 06/16/19 25 06/16/2024 COMP. METAB OLIC PANEL (14) eGFR 95 mL/mi n/1.7 3 >59 Not Available [facility] ([facility]) [address] [place], [address], 06/16/2024 10:11:32 06/16/19 25 06/16/2024 COMP. METAB OLIC PANEL (14) BUN/creatini ne ratio 14 9-23 Not Available [facility] ([facility]) [address] [place], [address], 06/16/2024 10:11:32 06/16/19 25 06/16/2024 COMP. METAB OLIC PANEL (14) sodium 140 mmol/ L 134-14 4 Not Available [facility] ([facility]) [address] [place], [address], 06/16/2024 10:11:32 06/16/19 25 06/16/2024 COMP. METAB OLIC PANEL (14) potassium 4.7 mmol/ L 3.5-5. 2 Not Available [facility] ([facility]) [address] [facility] [place], [address], 06/16/2024 10:11:32 06/16/19 25 06/16/2024 COMP. METAB OLIC PANEL (14) chloride 103 mmol/ L 96-106 Not Available [facility] ([facility]) [address] [place], [address], 06/16/2024 10:11:32 06/16/19 25 06/16/2024 COMP. METAB OLIC PANEL (14) carbon dioxide, total 16 mmol/ L 20-29 below low normal Not Available [facility] ([facility]) [address] [place], [address], 06/16/2024 10:11:32 06/16/19 25 06/16/2024 COMP. METAB OLIC PANEL (14) calcium 9.9 mg/dL 8.7-10 .2 Not Available [facility] ([facility]) [address] [place], [address], 06/16/2024 10:11:32 06/16/19 25 06/16/2024 COMP. METAB OLIC PANEL (14) protein, total 8.0 g/dL 6.0-8. 5 Not Available [facility] ([facility]) [address] [place], [address], 06/16/2024 10:11:32 06/16/19 25 06/16/2024 COMP. METAB OLIC PANEL (14) albumin 4.7 g/dL 3.9-4. 9 Not Available [facility] ([facility]) [address] [place], [address], 06/16/2024 10:11:32 06/16/19 25 06/16/2024 COMP. METAB OLIC PANEL (14) globulin, total 3.3 g/dL 1.5-4. 5 Not Available [facility] ([facility]) [address] [place], [address], 06/16/2024 10:11:32 06/16/19 25 06/16/2024 COMP. METAB OLIC PANEL (14) bilirubin, total 0.6 mg/dL 0.0-1. 2 Not Available [facility] ([facility]) [address] [facility], [place], [address], 06/16/2024 10:11:32 06/16/19 25 06/16/2024 COMP. METAB OLIC PANEL (14) alkaline phosphatase 87 IU/L 44-121 Not Available [facility] ([facility]) [address] [facility], [place], [address], 06/16/2024 10:11:32 06/16/19 25 06/16/2024 COMP. METAB OLIC PANEL (14) AST (SGOT) 20 IU/L 0-40 Not Available [facility] ([facility]) [address] [facility], [place], [address], 06/16/2024 10:11:32 06/16/19 25 06/16/2024 COMP. METAB OLIC PANEL (14) ALT (SGPT) 24 IU/L 0-32 Not Available [facility] ([facility]) [address] [facility], [place], [address], 06/16/2024 10:11:32 06/16/19 25 06/16/2024 CBC WITH DIFFE RENTI AL/PL ATELE T WBC 7.1 x10e3 /uL 3.4-10 .8 Not Available [facility] ([facility]) [address] [facility], [place], [address], 06/16/2024 10:11:33 06/16/19 25 06/16/2024 CBC WITH DIFFE RENTI AL/PL ATELE T RBC 4.97 x10e6 /uL 3.77-5 .28 Not Available [facility] ([facility]) [address] [facility], [place], [address], 06/16/2024 10:11:33 06/16/19 25 06/16/2024 CBC WITH DIFFE RENTI AL/PL ATELE T hemoglobin 15.0 g/dL 11.1-1 5.9 Not Available [facility] ([facility]) [address] [facility], [place], [address], 06/16/2024 10:11:33 06/16/19 25 06/16/2024 CBC WITH DIFFE RENTI AL/PL ATELE T hematocrit 45.2 % 34.0-4 6.6 Not Available [facility] ([facility]) [address] [facility], [place], [address], 06/16/2024 10:11:33 06/16/19 25 06/16/2024 CBC WITH DIFFE RENTI AL/PL ATELE T MCV 91 fL 79-97 Not Available [facility] ([facility]) [address] [facility], [place], [address], 06/16/2024 10:11:33 06/16/19 25 06/16/2024 CBC WITH DIFFE RENTI AL/PL ATELE T MCH 30.2 pg 26.6-3 3.0 Not Available [facility] ([facility]) [address] [facility], [place], [address], 06/16/2024 10:11:33 06/16/19 25 06/16/2024 CBC WITH DIFFE RENTI AL/PL ATELE T MCHC 33.2 g/dL 31.5-3 5.7 Not Available [facility] ([facility]) [address] [place], [address], 06/16/2024 10:11:33 06/16/19 25 06/16/2024 CBC WITH DIFFE RENTI AL/PL ATELE T RDW 13.0 % 11.7-1 5.4 Not Available [facility] ([facility]) [address] [place], [address], 06/16/2024 10:11:33 06/16/19 25 06/16/2024 CBC WITH DIFFE RENTI AL/PL ATELE T platelets 246 x10e3 /uL 150-45 0 Not Available [facility] ([facility]) [address] [facility], [place], [address], 06/16/2024 10:11:33 06/16/19 25 06/16/2024 CBC WITH DIFFE RENTI AL/PL ATELE T neutrophils 63 % notest ab. Not Available [facility] ([facility]) [address] [facility], [place], [address], 06/16/2024 10:11:33 06/16/19 25 06/16/2024 CBC WITH DIFFE RENTI AL/PL ATELE T lymphs 23 % notest ab. Not Available [facility] ([facility]) [address] [facility], [place], [address], 06/16/2024 10:11:33 06/16/19 25 06/16/2024 CBC WITH DIFFE RENTI AL/PL ATELE T monocytes 9 % notest ab. Not Available [facility] ([facility]) [address] [facility], [place], [address], 06/16/2024 10:11:33 06/16/19 25 06/16/2024 CBC WITH DIFFE RENTI AL/PL ATELE T eos 4 % notest ab. Not Available [facility] ([facility]) [address] [facility], [place], [address], 06/16/2024 10:11:33 06/16/19 25 06/16/2024 CBC WITH DIFFE RENTI AL/PL ATELE T basos 1 % notest ab. Not Available [facility] ([facility]) [address] [facility], [place], [address], 06/16/2024 10:11:33 06/16/19 25 06/16/2024 CBC WITH DIFFE RENTI AL/PL ATELE T neutrophils (absolute) 4.6 x10e3 /uL 1.4-7. 0 Not Available [facility] ([facility]) [address] [facility], [place], [address], 06/16/2024 10:11:33 06/16/19 25 06/16/2024 CBC WITH DIFFE RENTI AL/PL ATELE T lymphs (absolute) 1.6 x10e3 /uL 0.7-3. 1 Not Available [facility] ([facility]) [address] [facility], [place], [address], 06/16/2024 10:11:33 06/16/19 25 06/16/2024 CBC WITH DIFFE RENTI AL/PL ATELE T monocytes(ab solute) 0.6 x10e3 /uL 0.1-0. 9 Not Available [facility] ([facility]) [address] [facility], [place], [address], 06/16/2024 10:11:33 06/16/19 25 06/16/2024 CBC WITH DIFFE RENTI AL/PL ATELE T eos (absolute) 0.3 x10e3 /uL 0.0-0. 4 Not Available [facility] ([facility]) [address] [facility], [place], [address], 06/16/2024 10:11:33 06/16/19 25 06/16/2024 CBC WITH DIFFE RENTI AL/PL ATELE T baso (absolute) 0.0 x10e3 /uL 0.0-0. 2 Not Available [facility] ([facility]) [address] [facility], [place], [address], 06/16/2024 10:11:33 06/16/19 25 06/16/2024 CBC WITH DIFFE RENTI AL/PL ATELE T immature granulocytes 0 % notest ab. Not Available [facility] ([facility]) [address] [facility], [place], [address], 06/16/2024 10:11:33 06/16/19 25 06/16/2024 CBC WITH DIFFE RENTI AL/PL ATELE T immature grans (abs) 0.0 x10e3 /uL 0.0-0. 1 Not Available [facility] ([facility]) [address] [facility], [place], [address], 06/16/2024 10:11:33 Result Notes None recorded. Problems Name Problem SNOMED Code Status Onset Date Resolution Date Notes Provider Name and Address Organization Details Recorded Time Body mass index 40+ - severely obese 978456366 Active 2017 Nadira Bustillo PA-C Attn: Accounting ,[address] [facility], [place], [address] , [place] - [facility] 8 09:36:33 HPV - Human papilloma virus test positive Active 2017 Nadira Bustillo PA-C Attn: Accounting ,[address] [facility], [place], [address] , [place] - [facility] 8 09:37:53 Atypical squamous cells of undetermi carmella significa nce on cervical Papanicol aou smear 199005178 Active 2017 Nadira Bustillo PA-C Attn: Accounting ,[address] [facility], [place], [address] , [place] - [facility] 8 10:49:57 Female steriliza tion Active 2019 Bravo randhawa, [place] - [facility] 0 17:40:14 History of endometri al ablation 73986777472 9107 Active 2019 Bravo BeltranKatharina null, [place] - [facility] 0 17:40:35 Mixed hyperlipi demia 980485132 Active 2024 PIEDAD LACKEY PA-C Attn: Accounting ,[address] [facility], [place], [address] , [place] - [facility] 5 14:00:39 Irregular periods 53277078 Active Bravo BeltranKatharinasky randhawa, [place] - [facility] 6 12:50:50 Genital herpes simplex 18263365 Active Bravo randhawa [facility] 6 09:42:43 Bacterial vaginosis 720230064 Active Bravo randhawa [place] - [facility] 6 18:34:18 Candidias is of vagina 79522341 Active Bravo randhawa [facility] 6 18:34:18 Morbid obesity 966389600 Completed 201610/14/2017 Nadira Bustillo PA-C Attn: Accounting ,[address] [place], [address] , [facility] - [facility] 8 09:36:20 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 Procedures Surgical History Date Name Laterality Status Provider Name and Address Organization Details Recorded Time 04/24/19 23 hysterectomy completed Giana Caraballo MA [facility] 03/15/2023 16:02:24 04/06/19 20 HYSTEROSCOPY, WITH ENDOMETRIAL ABLATION (SURG) completed Bravo Posadas [facility] 04/09/2019 10:32:41 02/07/20 19 Date of Last Pap Smear completed Ale Boggs [facility] [facility] 03/13/2019 16:53:17 03/27/20 18 Endometrial Biopsy completed Rae Carpenter MD Attn: [address]ing[address] [place], [address], [facility] 03/27/2018 17:22:15 03/08/20 18 Colposcopy completed Rae Carpenter MD Attn: Accounting[address] [place], [address], [facility] 03/08/2018 18:11:25 02/26/20 18 Dilation and curettage completed Luann Betts MA [facility] 02/06/2019 16:27:22 03/28/19 13 Orthopedic Surgery completed Merly Montero MA [facility] 07/24/2014 13:01:36 03/28/19 13 Orthopedic Surgery completed Merly Montero MA [facility] 07/24/2014 13:01:36 03/28/19 12 Orthopedic Surgery completed Merly Montero MA [facility] 07/24/2014 13:01:36 03/28/19 09 Tubal Ligation completed Merly Montero MA [facility] 2014 13:01:36 03/28/18 88 Appendectomy completed Merly Montero MA [facility] 07/25/19 15 13:01:36 Imaging Results None recorded. Procedure Notes None recorded. Medical Equipment None Reported. Allergies Allergen ID Allergen Name Allergen Category Reaction Reaction Severity Criticality Documentation Date Start Date Code Code System Note Provider Name and Address Organization Details Recorded Time 414605 sodium hypochlor ite environme nt,medica tion Not available Not available Not available 05/23/2024 9881 RxNorm PIEDAD LACKEY PA-C Attn: [address] [place], [address] 16:23:15 Medications Name Sig Start Date Stop Date Status Note LastModified by Organization Details LastModified Time multivita min tablet Take 1 tablet every day by oral route. 05/01 completed Not Available Not Available Not Available cyclobenz aprine 10 mg tablet TAKE 1 TABLET BY MOUTH AT BEDTIME NEEDED FOR MUSCLE CRAMPS 05/23 completed Not Available Not Available Not Available azithromy madi 250 mg tablet 08/05 completed Not Available Not Available Not Available ibuprofen 800 mg tablet TAKE 1 TABLET BY MOUTH EVERY 8 HOURS WITH FOOD NEEDED 05/23 completed Not Available Not Available Not Available fluconazo le 150 mg tablet TAKE 1 TABLET BY MOUTH EVERY 72 HOURS FOR 6 DAYS DIRECTED 10/06 completed Not Available Not Available Not Available cephalexi n 250 mg capsule TAKE 1 CAPSULE BY MOUTH EVERY 6 HOURS FOR 7 DAYS 03/15 completed Not Available Not Available Not Available hydrocodo ne 5 mg-acetam inophen 325 mg tablet TAKE 1 TABLET BY MOUTH EVERY 4 HOURS NEEDED FOR PAIN 03/15 completed Not Available Not Available Not Available fluconazo le 200 mg tablet TAKE 1 TABLET BY MOUTH EVERY OTHER DAY FOR 3 DOSES 03/15 completed Not Available Not Available Not Available meloxicam 15 mg tablet 04/17 completed Not Available Not Available Not Available metronida zole 0.75 % (37.5 mg/5 gram) vaginal gel INSERT 1 APPLICAT ORFUL VAGINALL Y EVERY DAY AT BEDTIME FOR 5 DAYS 03/15 completed Not Available Not Available Not Available ondansetr on HCl 4 mg tablet TAKE 1 TABLET BY MOUTH EVERY 8 HOURS 03/15 completed Not Available Not Available Not Available prednison e 20 mg tablet TAKE 1 TABLET BY MOUTH TWICE DAILY 03/15 completed Not Available Not Available Not Available terconazo le 0.8 % vaginal cream INSERT 1 APPLICAT ORFUL VAGINALL Y EVERY DAY AT BEDTIME FOR 3 DAYS 03/15 completed Not Available Not Available Not Available penicilli n V potassium 500 mg tablet TK 1 T PO BID FOR 10 DAYS 05/01 completed Not Available Not Available Not Available metronida zole 500 mg tablet TAKE 1 TABLET BY MOUTH EVERY 12 HOURS FOR 7 DAYS 03/15 completed Not Available Not Available Not Available acyclovir 400 mg tablet TAKE 1 TABLET BY MOUTH EVERY 8 HOURS FOR 10 DAYS DIRECTED 03/15 completed Not Available Not Available Not Available estradiol -norethin drone acet 1 mg-0.5 mg tablet Take 1 tablet every day by oral route. 10/31 completed Not Available Not Available Not Available ciproflox acin 500 mg tablet TAKE 1 TABLET BY MOUTH EVERY 12 HOURS 03/15 completed Not Available Not Available Not Available Condoms-P rem Lubricate d Take 1 device as needed by miscell. route as needed. 01/13 completed Not Available Not Available Not Available triamcino lone acetonide 0.1 % topical cream APPLY TOPICALL Y TO THE AFFECTED AREA TWICE DAILY 03/15 completed Not Available Not Available Not Available acyclovir 800 mg tablet TAKE 1 TABLET BY MOUTH EVERY DAY WITH A MEAL active Not Available Not Available No t Available baclofen 20 mg tablet Take 1 tablet 3 times a day by oral route as directed for 30 days. 10/31 completed Not Available Not Available Not Available meloxicam 7.5 mg tablet Take 1 tablet every day by oral route in the morning. 10/31 completed Not Available Not Available Not Available oxycodone -acetamin ophen 5 mg-325 mg tablet TAKE 1 TABLET BY MOUTH EVERY EVENING NEEDED FOR PAIN 03/15 completed Not Available Not Available Not Available amoxicill in 875 mg tablet TAKE 1 TABLET BY MOUTH EVERY 12 HOURS FOR 10 DAYS 04/17 completed Not Available Not Available Not Available phenazopy ridine 100 mg tablet TAKE 1 TABLET BY MOUTH THREE TIMES DAILY FOR 3 DAYS NEEDED 05/23 completed Not Available Not Available Not Available nitrofura ntoin macrocrys rusty 100 mg capsule TAKE 1 CAPSULE BY MOUTH TWICE DAILY FOR 5 DAYS active Not Available Not Available No t Available triamcino lone acetonide 0.1 % topical ointment APPLY THIN LAYER TOPICALL Y TO THE AFFECTED AREA TWICE DAILY FOR 5 DAYS 03/15 completed Not Available Not Available Not Available nystatin 100,000 unit/gram topical cream APPLY CREAM TOPICALL Y TO AFFECTED AREA TWICE DAILY 06/02 completed Not Available Not Available Not Available polymyxin B sulfate 10,000 unit-trim ethoprim 1 mg/mL eye drops 03/15 completed Not Available Not Available Not Available hydrochlo rothiazid e 12.5 mg capsule TAKE 1 CAPSULE BY MOUTH EVERY DAY IN THE MORNING active Not Available Not Available No t Available diclofena c potassium 50 mg tablet TAKE 1 TABLET BY MOUTH THREE TIMES DAILY 04/17 completed Not Available Not Available Not Available triamcino lone acetonide 0.025 % topical ointment APPLY THIN LAYER TOPICALL Y TO THE AFFECTED AREA TWICE DAILY NEEDED 05/23 completed Not Available Not Available Not Available gabapenti n 300 mg capsule TAKE 1 CAPSULE BY MOUTH AT BEDTIME 05/23 completed Not Available Not Available Not Available ibuprofen 600 mg tablet 02/27 completed Not Available Not Available Not Available methylpre dnisolone 4 mg tablets in a dose pack 06/02 completed Not Available Not Available Not Available albuterol sulfate HFA 90 mcg/actua tion aerosol inhaler INHALE 2 PUFFS BY MOUTH EVERY 4 HOURS active Not Available Not Available No t Available norethind fabi (contrace ptive) 0.35 mg tablet Take 1 tablet every day by oral route. 08/05 completed Not Available Not Available Not Available ondansetr on 4 mg disintegr ating tablet DISSOLVE ONE TABLET BY MOUTH EVERY 4 HOURS NEEDED FOR NAUSEA 04/17 completed Not Available Not Available Not Available dicyclomi ne 10 mg capsule Take 1 capsule 3 times a day by oral route as needed. 01/13 completed Not Available Not Available Not Available nitrofura ntoin monohydra te/macroc rystals 100 mg capsule TAKE 1 CAPSULE BY MOUTH EVERY 12 HOURS FOR 7 DAYS 05/23 completed Not Available Not Available Not Available calcium 600 mg (as carbonate )-vitamin D3 10 mcg (400 unit) tablet Take 1 tablet twice a day by oral route. 05/01 completed Not Available Not Available Not Available calcium 600 mg (as carbonate )-vitamin D3 20 mcg (800 unit) tablet Take 1 tablet twice a day by oral route. 01/13 completed Not Available Not Available Not Available Contrave 8 mg-90 mg tablet,ex tended release Take 2 tablets twice a day by oral route. 05/26 completed [employer] RESTORATIVE COORDINATOR Not Available Not Available Not Available Fluzone Quad (P F) 60 mcg(15 mcgx4)/0. 5 mL intramusc ular syringe 02/08 completed Not Available Not Available Not Available Flucelvax Quad (PF) 60 mcg (15 mcg x 4)/0.5 mL IM syringe 06/25 completed Not Available Not Available Not Available Flucelvax Quad (PF) 60 mcg (15 mcg x 4)/0.5 mL IM syringe PHARMACI ST ADMINIST ERED IMMUNIZA TION ADMINIST ERED AT TIME OF DISPENSI NG 04/17 completed Not Available Not Available Not Available Vitals Date Recorded Body height Body mass index (BMI) Body weight Systolic blood pressure Diastolic blood pressure Provider Name and Address Organization Details Last Updated DateTime 04/17/2021 165.1 cm 41.8 kg/m2 163434.6 8 g 112 mm[Hg] 76 mm[Hg] Nina Zambrano [place] [facility] 2 14:18:49 Date Recorded Body height Body mass index (BMI) Body weight Heart rate Body temperature Oxygen saturation Oxygen saturation in Arterial blood by Pulse oximetry Systolic blood pressure Diastolic blood pressure Provider Name and Address Organization Details Last Updated DateTime 2 165.1 cm 43 kg/m2 055419. 63 g 91 /min 98.8 [degF] 98 % 98 % 140 mm[Hg] 86 mm[Hg] Nina Zambrano MA [facility] 2 13:14:38 Date Recorded Body height Body mass index (BMI) Body weight Heart rate Body temperature Oxygen saturation Oxygen saturation in Arterial blood by Pulse oximetry Systolic blood pressure Diastolic blood pressure Provider Name and Address Organization Details Last Updated DateTime 2 165.1 cm 39.9 kg/m2 029741. 17 g 90 /min 98.9 [degF] 98 % 98 % 140 mm[Hg] 80 mm[Hg] Nina Zambrano MA [facility] 2 12:17:01 Date Recorded Systolic blood pressure Diastolic blood pressure Provider Name and Address Organization Details Last Updated DateTime 01/06/2022 140 mm[Hg] 80 mm[Hg] CHE SANTOS Attn: Accounting[address] [place], [address], [facility] 01/06/2022 15:04:43 Date Recorded Body height Body mass index (BMI) Body weight Oxygen saturation Oxygen saturation in Arterial blood by Pulse oximetry Heart rate Body temperature Systolic blood pressure Diastolic blood pressure Provider Name and Address Organization Details Last Updated DateTime 3 165.1 cm 37.6 kg/m2 099833. 88 g 96 % 96 % 67 /min 98.1 [degF] 124 mm[Hg] 78 mm[Hg] Giana Caraballo MA [facility] 3 16:05:28 Date Recorded Body height Body mass index (BMI) Body weight Body temperature Oxygen saturation Oxygen saturation in Arterial blood by Pulse oximetry Heart rate Systolic blood pressure Diastolic blood pressure Provider Name and Address Organization Details Last Updated DateTime 5 165.1 cm 43.1 kg/m2 576146. 06 g 98 [degF] 95 % 95 % 88 /min 124 mm[Hg] 90 mm[Hg] Giana Caraballo MA [facility] 5 15:59:53 Social History Question Answer Notes LastModified by Organizat ion Details LastModified Time Tobacco Smoking Status Never Smoker Merly Montero, RAD[facility], [place] - [facility] 07/24/2014 13:01:36 Do You Have An Advance Directive? No Information not available 08/06/2015 Is Blood Transfusion Acceptable In An Emergency? Yes Information not available 08/06/2015 What Is Your Level Of Caffeine Consumption? Occasional Information not available 08/06/2015 How Much Tobacco Do You Chew? None Information not available 08/06/2015 What Type Of Diet Are You Following? REGULAR Information not available 08/06/2015 Which Illicit Or Recreational Drugs Have You Used? Denies None Information not available 08/07/2019 Education 4 Year College Informatio n not available 08/06/2015 Live Alone Or With Others? With Others Information not available 08/06/2015 What Was The Date Of Your Most Recent Tobacco Screening? 05/23/2024 [email or web address] Information not available 05/23/2024 How Many Children Do You Have? 1 Information not available 08/06/2015 Performs Monthly Self-breast Exam? No Information no t available 08/06/2015 Do You Use Protection During Sex? Always Information not available 08/06/2015 What Is Your Relationship Status? Single Information not available 08/06/2015 Seat Belts Used Routinely Yes Information not available 08/06/2015 Are You Sexually Active? Yes Information not available 08/06/2015 How Much Tobacco Do You Smoke? No Information not available 08/05/2016 General Stress Level High Information not available 08/06/2015 Do You Use Sunscreen Routinely? No Information not available 08/06/2015 On What Date Was Tobacco Cessation Counseling Provided? 11/27/2019 [email or web address] Information not available 11/27/2019 How Many Years Have You Smoked Tobacco? 0 Information not available 08/05/2016 Sex: Unknown Functional Status Question Answer Note LastModified by Organizat ion Details LastModified Time What is your level of alcohol consumption? Occasional Information not available 08/06/2015 Do you or have you ever used smokeless tobacco? Never used smokeless tobacco Information not available 08/07/2019 Are you currently employed? Yes Information not available 08/06/2015 What is your occupation? [employer] [email or web address] Information not available 05/05/2020 Do you or have you ever used e-cigarettes or vape? Never used electronic cigarettes Information not available 08/07/2019 What is your exercise level? None Information not available 08/06/2015 Mental Status None recorded. Family History Relationship Description Onset Age of this Age Resolved Age Notes LastModified by Organization Details LastModified Time Mother Hypertensive disorder [email or web address] Not available 08/05 12:50:55 Maternal Grandmother Malignant neoplasm of ovary [email or web address] Not available 08/05 12:50:55 Medical History Condition Response Coronary Artery Disease N Blood Diseases N Kidney Cyst N Hyperthyroidism N Blood disorders N MRSA N Blood Transfusion N Emphysema N Blood Clots N COPD N Depression N Pneumonia N Peripheral Arterial Disease N Premature N Edema N TIA N Headaches/Migraines N Anxiety Disorder N Obesity N Infertility N Polyps N Acid Reflux (GERD) N Hematuria N Stroke N Neck Injury N Polio N Hospital Admission other than N Neurologic Disorder N Other Sleep Disorders N Rheumatoid Arthritis N Fibromyalgia N Abdominal Aortic Aneurysm Repair N Kidney Disease N Heart Conditions N Heart Disease/Heart Problems N Hospitalizations N Brain Tumors N Acne N Eating Disorder N Skin Problems N Constipation N Meningitis N Tuberculosis N Cerebral Palsy N Myocardial Infarction N Asthma N Substance Abuse N Peripheral Vascular Disease N Vertigo N Sleep Disorder N Cirrhosis N Pulmonary Embolism N Chicken Pox N Flomax Use Past or Present N Hematologic Disease N Anxiety/Depression N Thyroid Disease N Colon Cancer N Glaucoma N Lung Disease N Developmental or Behavioral Disorders N Bipolar N Pacemaker N Diverticulitis/Diverticulosis N Anesthesia Complications N Orthopedic Problems N Orthotics N Head Injury/Concussion N Congenital Anomalies N Felipe Bite N Chronic Kidney Disease N Endometriosis N Liver Disease N Dialysis N Schizophrenia N Speech Delay N Chronic Obstructive Pulmonary Disease N Parkinson's Disease N Thyroid Problems N GI Problems N Developmental Delay N Anemia N Immune System Disorder N Multiple Sclerosis N Colon Polyps N Heart Attack (CA) N Diabetes N Cardiomyopathy N Blood Transfusions N Heart Problems/Murmur N Eye Trauma N Congestive Heart Failure (CHF) N Valvular Heart Disease N Hyperlipidemia N Double Vision N Abuse/Domestic Violence N Hepatitis B N Lupus N Epilepsy/Seizures N Reflux/GERD N Aneurysm N Bronchitis N Heart Disease N Hypertension N Pre-Eclampsia N Heart Failure N Other Y Gout N High Blood Pressure N Atrial Fibrillation N Kidney Stones N Head Trauma/Injury N Congenital Heart Disease N Spine Problems N Gastrointestinal Disease N Lung Mass N Sinusitis N Obstructive Sleep Apnea N Muscle, Joint, or Bone Problems N Autoimmune disease N Vision or Eye Problems N Arthritis N Blood Clot N Cancer N Seasonal allergies N Leg or Foot Ulcers N Raynaud's Disease N Aortic Aneurysm N Arrhythmia N Headaches N Heart Problems N Ambloypia N Ear or Hearing Problems N Hyperparathyroidism N Migraines N Artificial Joints N Kidney or Bladder Problems N NSAID Use N Encephalitis N PTSD N Ulcers N Prostate Hypertrophy N Bleeding Disorder N AIDS/HIV N Urinary Tract Infection N Back Problems N Allergies N Atrial Flutter N GERD/Reflux N Hepatitis N Autism Spectrum Disorder (ASD) N Breast Cancer N Hernia N Hypothyroidism N Breast Problem N Genitourinary Disease N Deep Vein Thrombosis N Varicose Veins N Cystic Fibrosis N Hearing Loss N Developmental Problems N Carotid Disease N Vitamin D Deficiency N ADHD N Bladder or Kidney Problems N High Cholesterol N [place]iers N Valvular Abnormalities N Psychiatric/Mental Health Condition N Organ Transplant N Foot Deformity N Allergies/Hayfever N Dyslipidemia N Hyponatremia N Diabetic Eye Disease N Osteoporosis/Osteopenia N Back Pain N Proteinuria N Mental Illness N Neurological Problems N Ovarian Cancer N Bedwetting N Seizures/Epilepsy N Kidney Failure N Ocular trauma N Dementia N Diverticulitis N Sleep Apnea N Mental Problems N Warfarin Management N Osteoporosis N Gynecological History Statement/Question Response Abnormal Pap N Flow Light Date of LMP 03/28/2022 On BCP's at Conception? N STIs/STDs Yes HPV Vaccine N Duration of Flow (days) 5 Age at Menarche 14 Current Control Method Tubal Ligat ion Age at First Child 28 Sexually Active? Y Menses Monthly N Date of Last Pap Smear 02/06/2019 Sexual Problems? N LMP Approximate Desired Control Method Sterilizati on Obstetrics History GPAL:G 4 P 1 0 3 1 Type Value Multiple Births 0 Full Term 1 Induced 1 Spontaneous 2 Premature 0 Living 1 Ectopics 0 Total 4 Immunizations Vaccine Type Date Status Note Provider [place] [facility] and Address Organization Details Recorded Time Influenza, split virus, quadrivalent, preservative 8 completed RADHA Green, [place] [facility] 02/27/2018 16:13:38 COVID-19, mRNA, LNP-S, PF, 100 mcg/0.5mL dose or 50 mcg/0.25mL dose 1 completed Tremayne [place], [place] [facility] 09/18/2020 14:29:58 COVID-19, mRNA, LNP-S, PF, 100 mcg/0.5mL dose or 50 mcg/0.25mL dose 1 completed PIEDAD LACKEY PA-C Attn: [address] [place], [address], [place] [facility] 03/15/2023 16:10:30 Influenza, MDCK, quadrivalent, PF 9 completed PIEDAD LACKEY PA-C Attn: [address] [place], [address], [place] [facility] 03/15/2023 16:10:30 Influenza, MDCK, quadrivalent, PF 0 completed PIEDAD LACKEY PA-C Attn: [address] [place], [address], [place] [facility] 03/15/2023 16:10:30 Tdap 2 completed PIEDAD LACKEY PA-C Attn: [address] [place], [address], [place] [facility] 03/15/2023 16:10:30 Influenza, split virus, quadrivalent, PF 8 completed PIEDAD LACKEY PA-C Attn: [address] [place], [address], [place] [facility] 03/15/2023 16:10:30 Influenza, split virus, trivalent, preservative 5 completed Not Available [facility] 04/14/2019 02:32:02 Past Encounters Encounter ID Performer Location Encounter Start Date Encounter Closed Date Diagnosis/Indication Diagnosis SNOMED-CT Code Diagnosis ICD10 Code Diagnosis Note [id number] MD Karen Ferguson (LINE UP WORKER) [address] [place] [id number] 07/24/2014 11:08:45 07/24/2014 13:48:36 Gynecologic examination 37378030 Administra tion of influenza vaccine 29049256 Female sterilization 63621765 Venereal d isease screening 029949858 [id number] [facility] [address] [place] [id number] 08/06/2015 11:33:59 08/06/2015 14:09:04 Gynecologic examination 83772834 Z01.419 Z11.51 Genital he rpes simplex 76872175 A60.9 Family his tory of malignant neoplasm of ovary 993014150 Z80.41 Family amada nning surveillance 128765802 Z30.09 [id number] [facility] [address] [place] [address] [id number] 08/05/2016 11:25:37 08/05/2016 16:12:00 Gynecologic examination 23126920 Z11.51 Genital he rpes simplex 02596127 A60.9 Morbid obesity 813974156 E66.01 [id number] [facility] [address] [place] [id number] 05/26/2017 11:02:07 05/26/2017 15:04:38 Group B Streptococcus carrier [id number] 103 Z22.330 Urogenital infection by Trichomonas vaginalis 65297442 A59.00 Genital he rpes simplex 30335419 A60.9 Irritable bowel syndrome 14100191 K58.9 Family amada nning surveillance 306481217 Z30.09 Morbid obesity 497646142 E66.01 Exposure t o sexually transmissible disorder 357314721 Z20.2 [id number] MD Karen Briceno (LINE UP WORKER) [address] [place] [address] [id number] 10/14/2017 09:00:41 10/14/2017 10:34:47 Gynecologic examination 63400324 Z01.419 [facility] risk of sexually transmitted infection 211206129 Z20.2 Body mass index 40+ - severely obese 360849165 Z68.41 Advised 30 minutes of exercise 5 days/week Advised to not drink her calories Advised 3 balanced meals/day with plenty of fruits and vegetables HPV - Audrey n papillomavirus test positive 130421697 R87.619 Dysuria 34751584 R30.0 Urinary tr act infectious disease 27680000 N39.0 Advised to increase water intakeTake abx as prescribeA zo OTCStay away from sugary drinks [id number] Jennifer Blackman MD [facility] (Adult Med) [address] [place] [id number] 01/13/2018 15:08:23 01/16/2018 11:54:36 Carpal tunnel syndrome of right wrist 1983285894 60556 G56.01 Discussed with patient, agreed with the referral. 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 [id number] [facility] [address] [place] [id number] 02/08/2018 14:27:45 02/08/2018 15:17:32 Pain in right hand 7388269566 83717 M79.641 Asking for second opinion. Light duty for 1 month. [id number] MD Karen Razo (LINE UP WORKER) [address] [place] [address] [id number] 02/27/2018 15:51:31 02/28/2018 11:13:46 Abnormal uterine bleeding 1878932577 9100 N93.9 Counseled about it. Atypical s quamous cells of undetermined significance on cervical Papanicolaou smear 056166085 R87.610 Since PAP on 08/05/16 - showed HPV and PAP on 10/14/17 showed ASCUS - offered colposcopy . Counseled about ASCUS, colposcopy and safe sex. Patient verbalized understand ing. Bacterial vaginosis 4197 44961 N76.0 Counseled about it. [id number] MD Karen Razo (LINE UP WORKER) [address] [place] [address] [id number] 03/08/2018 15:44:34 03/09/2018 11:02:01 Gynecologic examination 67306544 Z01.419 Atypical s quamous cells of undetermined significance on cervical Papanicolaou smear 271812542 R87.610 Since PAP on 08/05/16 - showed HPV and PAP on 10/14/17 showed ASCUS - offered colposcopy . Counseled about ASCUS, colposcopy and safe sex. Patient verbalized understand ing. Counseled about risk of infection, bleeding, damage to internal organs, indicated procedures . Patient verbalized understand ing. Consent signed in the chart. Refer to procedure note. Notified patient that if she is bleeding more than pad an hour, fever greater than 100.4, pain not relieved by motrin to go to ER.Advised patient pelvic rest. Pain in pelvis 65709595 R10.2 Since she say its minimal cramping, advised to take motrin. She did TVUS just before coming to the [facility] t. Endometrium thickened 44 0008468 N85.00 Received ultrasound from [facility] after I did colposcopy , cervical biopsy and ECC. D/W patient TVUS result. Counseled about follicular cyst and thick endometriu m. Counseled about causes of it. Since she has AUB recently and thick EMT, offered EMB. Since todays procedure already done and TVUS result was received after procedure, EMT in 2 weeks. Patient verbalized understand ing. Abnormal u terine bleeding 6113080094 9100 N93.9 Counseled about it. Improved. Patient refused medical management . [id number] [facility] [address] [place] [address] [id number] 03/27/2018 15:58:53 03/29/2018 09:02:48 Endometrium thickened 827915851 N85.00 Received ultrasound from [facility] after I did colposcopy , cervical biopsy and ECC. D/W patient TVUS result. Counseled about follicular cyst and thick endometriu m. Counseled about causes of it. Since she has AUB recently and thick EMT, offered EMB. Since todays procedure already done and TVUS result was received after procedure, EMT in 2 weeks. Patient verbalized understand ing. Cervical intraepithelial neoplasia grade 1 567081739 N87.0 Counseled about it. PAP in 12 months. Abnormal u terine bleeding 2437846904 9100 N93.9 Counseled about it. Improved.S mark she say she has migrane GUERRERO counseled about different forms of progestero ne only control like OCPS, Depo Provera, Nexplanon, progestero ne IUD. Patient refused any form today. Safe sex counseling done. Patient refused medical management . 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 [id number] CHE ESCOBAR (LINE UP WORKER) [address] [place] [address] [phone] 0 02/06/2019 15:47:22 02/07/2019 16:43:36 Gynecologic examination 30071476 Z01.419 Z11.51 Z12.4 Advised pt that since she is currently bleeding, may have to repeat Pap smear if cytology cannot be interprete d. Venereal d isease screening 593182150 Z11.3 Irregular periods 531184 07 N92.6 Discussed different control options with patient to control bleeding. She is not interested at this time. [id number] MD Karen Ferguson (LINE UP WORKER) [address] [place] [address] [phone] [id number] 03/13/2019 16:25:27 03/14/2019 10:49:08 Irregular periods 14042325 N92.6 Atypical s quamous cells of undetermined significance on cervical Papanicolaou smear 388316811 R87.610 Family amada ing surveillance 606813989 Z30.09 Menorrhagia 817203896 N9 2.0 [id number] MD Karen Ferguson (LINE UP WORKER) [address] [place] [address] [phone] 0 04/19/2019 15:17:14 04/20/2019 10:54:53 Postoperative visit 304042328 Z09 Menorrhagia 282981266 N9 2.0 s/p endometria l ablation - 04/05/2019 [id number] CHE SANTOS (Adult Med) [address] [place] [address] [phone] 06/26/2019 14:12:26 06/27/2019 09:12:18 Osteoarthritis of first carpometacarpal joint of right hand [id number] 92053 M18.11 Continued R dorsal hand pain, swelling, decreased ROM, and decreased strength x >1 year. Hx of injury to her right wrist over 1 year ago, she was referred to orthopedic s, xray showed OA of first CMC joint, MRI completed - normal, and orthopedic s was unable to help further.Liya ward had intermitte nt FMLA paperwork signed by PCP last year, this paperwork was only valid until the end of 2018. Requesting renewal of FMLA paperwork. She works at [employer], heavy lifting makes her symptoms worse.She takes ibuprofen PRN for pain and swelling, also wears a wrist brace PRN.- Continue with supportive care at home, IBU and brace- patient interested in a second orthopedic opinion, will send referral- decreased strength and ROM on exam, no prior PT, provided her with order for PT- provided her with work note, no lifting over 25 pounds x 2 weeks until FMLA paperwork can be renewed by PCP [id number] MD Karen Ferguson (LINE UP WORKER) [address] [place] [address] [phone] 08/07/2019 10:40:55 08/08/2019 07:22:44 Secondary amenorrhea 239232970 N91.1 had sterilizat ion and endometria l ablation 04/06/19 probable cause Female sterilization 608 67803 Z30.2 History of endometrial ablation [id number] 32896 N99.85 [id number] MD Karen Gates (Adult Med) [address] [place] [address] [phone] 0 09/20/2019 17:03:30 09/21/2019 10:09:27 Pain in right hand 5927940976 68910 M79.641 Asking for second opinion. Light duty for 1 month. numbness AND PAIN AND Wweakness, POSSIBLE CARPAL TUNNEL synDroms, WILL DO nct AND X RAY, SHE SAID THERE LUMP . dISCUSSED WITH PATIENT , SHE agreed WITH THE ORDERS BELOW. [id number] MD Karen Gates (Adult Med) [address] [place] [address] [phone] 11/01/2019 15:51:48 11/02/2019 10:26:07 Pain in right hand 2799819343 44631 M79.641 Asking for second opinion. Light duty for 1 month. numbness AND PAIN AND weakness, POSSIBLE CARPAL TUNNEL synDroms, WILL DO nct AND X RAY, SHE SAID THERE LUMP . dISCUSSED WITH PATIENT , SHE agreed WITH THE ORDERS BELOW. [id number] MD Karen Ferguson (LINE UP WORKER) [address] [place] [address] [phone] 11/27/2019 15:50:23 11/28/2019 09:12:54 Exposure to sexually transmissible disorder 964785993 Z20.2 Candidiasis of vagina 72 639603 B37.3 Family amada nning surveillance 649821510 Z30.09 [id number] MD Karen Ferguson (LINE UP WORKER) [address] [place] [address] [phone] 03/05/2020 08:57:37 03/12/2020 10:25:11 Family planning surveillance 488006348 Z30.09 tubal sterilizat ion Exposure t o sexually transmissible disorder 935826068 Z20.2 Administra tion of influenza vaccine 77794395 Z23 [id number] MD Karen Ferguson (LINE UP WORKER) [address] [place] [address] [phone] 04/04/2020 14:53:02 04/07/2020 12:24:34 Administration of influenza vaccine 41895646 Z23 [id number] MD Karen Gates (Adult Med) [address] [place] [address] [phone] 05/01/2020 10:07:59 05/02/2020 10:51:22 Pain of left ankle joint 2221231274 0482638 M25.572 Lateral malleolus , tender, swelling , hard to pu the weight on, will order walking boot, .and MRI for possible torn ligament or tendon. [id number] CHE SANTOS (Adult Med) [address] [place] [address] [phone] 0 04/17/2021 14:05:24 04/20/2021 12:52:15 Gynecologic examination 88851154 Z01.419 Here today for WWGRICELDA 04/08/2021, history of irregular cyclesHist ory of tubal ligation over 10 years agoLast pap smear was in 2019, normal at the time- urine sample concerning for UTI, patient has a history of UTIs, will treat today- pap smear completed, will call [facility] results Venereal d isease screening 334565045 Z11.3 - STD screening completed today during visit Screening mammography 24 764026 Z12.31 No family history of breast cancerPlan to start mammograms at age 42 Morbid obesity 912702729 E66.01 Advised decreased portion sizes, good food choices, limited eating out or fast food and eliminate soda and juice from diet. Advised physical activity daily and offered encouragem ent to continue with positive changes made so far. Dysmenorrhea 576908330 N 94.6 Hx of tubal ligation (clips) >10 years agoHx of uterine ablation 2 years ago due to heavy, painful periodsSin ce ablation, periods are very light now but the pain and cramps during her cycles are severe. She can not do anything besides lay in bed during the weeks of her cycles. 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 Posadas but does not take it, states she has it at home ready to go in case she develops an outbreak- discussed changing the dosage of the acyclovir to the abortive dose for possible future outbreaks since she is not taking it daily for prevention , send rx of abortive dose, take medication as soon as symptoms begin Urinary tr act infectious disease 54909091 N39.0 History of UTIs, denies symptoms today- urine dipstick showed positive nitrites, LE, and blood- will start abx for UTI, also diflucan per request due to usual yeast infections [id number] CHE SANTOS (Adult Med) [address] [place] [address] 0 10/06/2021 12:32:12 10/07/2021 13:45:19 Dysmenorrhea 416448934 N94.6 Hx of tubal ligation (clips) >10 years agoHx of uterine ablation 2 years ago due to heavy, painful periodsSin ce ablation, periods are very light now but the pain and cramps during her cycles are severe. She can not do anything besides lay in bed during the weeks of her cycles. Has had to miss work due to dysmenorrh ea. IBU does not help, midol provides mild relief, and heat does not help.Possi soraida PATSS diagnosis, did not get US completed since last visit- new US ordered today to rule out other causes, look for hydrosalpi nx on exam if US happens during period- encouraged her to think about starting hormone options to minimize dysmenorrh ea Urinary tr act infectious disease 83560493 N39.0 History of UTIs, denies symptoms today- UA and STDs sent to lab today, urine dipstick machine is broken in the office currently Morbid obesity 543952037 E66.01 Advised decreased portion sizes, good food choices, limited eating out or fast food and eliminate soda and juice from diet. Advised physical activity daily and offered encouragem ent to continue with positive changes made so far. Depression screening 171 890007 Z13.31 PHQ 2/9 was negative in office today (1 out of 27) Elevated blood-pressure reading without diagnosis of hypertension 693824134 R03.0 BP 140/86No prior history of HTN- will continue to monitor, if elevated again at next visit will start medication [id number] CHE SANTOS (Adult Med) [address] [place] [address] [phone] 0 01/06/2022 12:01:59 01/07/2022 11:10:32 At increased risk of sexually transmitted infection 981841076 Z20.2 She is in a new [facility] ip and wants to ensure no infections prior to becoming sexually active with new partner. 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, requesting to be tested again today.No concerning STD symptoms including pelvic pain, vaginal discharge, dysuria, and vaginal irritation .- discussed HSV diagnosis further with patient explaining positive antibodies and low viral load- tests completed today, will call with results Elevated blood-pressure reading without diagnosis of hypertension 819997803 R03.0 BP 140/80, prior BP at last visit 140/86No prior history of HTN- due to 2 high blood pressure readings, will start BP medication today and patient aware of new HTN diagnosis- informatio n provided for supportive care at home, BP kit ordered- f/u in 1-2 months for check-up Corneal abrasion 5737195 2 S05.02XD On PE: left bulbar conjunctiv a erythemato usPatient notes she went to the ER yesterday after scratching her eye with her long fake nails accidental ly, diagnosed with corneal abrasion- c/w medication s as prescribed per ER [id number] MD Karen Abraham (Adult Med) [address] [place] [address] [phone] 03/15/2023 15:41:35 03/16/2023 16:20:23 Body mass index 30+ - obesity 744539348 Z68.37 BMI- 37.6 Depression screening 171 714562 Z13.31 PHQ9- negative Mental hea lt screening 956970003 Z13.39 GAD7- negative Gynecologi c examination 04185121 Z01.419 Hysterecto my without oopherecto myNuswab sample taken today, will call patient with resultsPat ient to continue with annual exams Screening mammography of bilateral breasts [id number] 43892 Z12.31 Will send to [facility] for mammogramw ill call patient with resultsPat ient to do monthly self breast exam as instructed today [id number] Eboni Geller MD [facility] (Adult [facility]) [address] [place] [address] [phone] 05/23/2024 15:37:04 05/24/2024 11:24:40 Depression screening 609132895 Z13.31 PHQ9- negative Mental hea lth screening 583900616 Z13.39 GAD7- negative Morbid obesity 504133325 E66.01 BMI 43.1 Essential hypertension 76174013 I10 BP today 124/90BP Goal: {{Less than 140/90* Le ss than 150/90}}BP Controlled : {{yes no*} }Healthy Weight: {{4'10= 91-118 lbs 4'11= 94-123 lbs 5'= 97-127 lbs 5'1= 100-131 lbs 5'2= 104-135 5' 3= 107-140 lbs 5'4= 110-144 lbs 5'5= 115-149 lbs* 5'6= 118-154 lbs 5'7= 121-158 lbs 5'8= 125-163 lbs 5'9= 128-168 lbs 5'10= 132-173 lbs 5'11= 136-178 lbs 6'= 140-183 lbs 6'1= 144-188 lbs 6'2= 148-193 lbs 6'3= 152-199 lbs 6'4= 156-204 lbs}}Discu ssed: Low sodium balanced diet, moderate exercise at least 3-4 times per week for an average of 40 minutes, limiting alcohol to 1 drink per day (F) or 2 drinks per day (M), and smoking cessation if currently smoking. Uncontroll ed Hypertensi on potential risks, heart attack, , stroke, kidney failure etc. Hypertensi on is the silent Killer Take your Hypertensi on medication daily keep appointmen ts stop concentrat ed sugars--fo llow 1500 meal plan exercise 50-60 minutes daily on most days see eye doctor once a year see dentist every 6 monthsNext Visit: {{1 2 3 4 5 6* 7 8 9 10 11 12} }{{week(s) * month(s) }}Labs todayresta rt HCTZ 12.5 daily Cough 98776007 R05.9 c/w albuterol Health Concerns Section Related Observation LastModified by Organization Detai ls LastModified Time None Recorded Concern Status LastModified by Organization Details LastModified Time None Recorded Advance Directives Directive N: Payers Encounter Date Sequence Insurance Name Policy Number Policy Figueredo Covered Member ID Figueredo Member ID Guarantor Name 04/17/2021 1 [facility] ON OR AFTER 09/25/20 (MEDICAID REPLACEMENT - HMO) Jael Tabares [id number] Jael Tabares 10/06/2021 1 [facility] ON OR AFTER 09/25/20 (MEDICAID REPLACEMENT - HMO) Jael Tabares [id number] Jael Tabares 01/06/2022 1 [facility] ON OR AFTER 09/25/20 (MEDICAID REPLACEMENT - HMO) Jael Tabares [id number] Jael Tabares 03/15/2023 1 [facility] ON OR AFTER 09/25/20 (MEDICAID REPLACEMENT - HMO) Jael Tabares [id number] Jael Tabares 05/23/2024 1 [facility] ON OR AFTER 09/25/20 (MEDICAID REPLACEMENT - HMO) Jael Tabares [id number] Jael Tabares Notes Date Note Type Note Provider Name and Address Organization Details Recorded Time 04/17/2021 text/html 40yo F presents for annual WWE. Used to follow with Dr. Posadas for OBGYN care. LMP 04/08/2021, history of irregular cyclesHistory of tubal ligation over 10 years agoLast pap smear was in 2019, normal at the time CHE SANTOS Attn: [address] [place], [address], [facility] 04/17/2021 15:08:41 04/17/2021 text/html Annual GYNReport ed bypatient.History:n o gynecologic complaints Menstrual cycle:Severe dysmenorrhea(starte d after her ablation 2 years ago, the pain is so severe she can't sleep and nothing helps including NSAIDS/heat);Irregu lar cycle intervals Urinary symptoms:No hematuria; No incontinence Vulva:No genital lesion Vagina:Normal vaginal discharge Breast:No breast pain; No breast lump; No nipple discharge Current Contraception:Tubal ligation Sexual complaints:No sexual complaints; No pain during intercourse; Normal libido Menopausal Symptoms:No menopausal symptoms; Normal vaginal lubrication Psychological symptoms:No depression; No anxiety; No PMDD Preventive measures:Encourage self breast examination; Encourage regular exercise; Encourage no tobacco use; Encourage regular mammograms starting age 40; Followed with Q3 year pap smear and high risk HPV typing CHE SANTOS Attn: [address] [place], [address], [facility] 04/17/2021 15:08:41 10/06/2021 text/html Annual GYNReport ed bypatient.History:n o gynecologic complaints Menstrual cycle:Severe dysmenorrhea(starte d after her ablation 2 years ago, the pain is so severe she can't sleep and has to miss work sometimes, nothing helps including NSAIDS/heat);Irregu lar cycle intervals Urinary symptoms:No hematuria; No incontinence Vulva:No genital lesion Vagina:Normal vaginal discharge Breast:No breast pain; No breast lump; No nipple discharge Current Contraception:Tubal ligation Sexual complaints:No sexual complaints; No pain during intercourse; Normal libido Menopausal Symptoms:No menopausal symptoms; Normal vaginal lubrication Psychological symptoms:No depression; No anxiety; No PMDD Preventive measures:Encourage self breast examination; Encourage regular exercise; Encourage no tobacco use; Encourage regular mammograms starting age 40; Followed with Q3 year pap smear and high risk HPV typing 41yo F presents today to f/u regarding severe dysmenorrhea. LMP started 10/06/2021, cramping is mild currently, history of irregular cycles. Never completed pelvic US from last visit, requesting another order today.History of tubal ligation over 10 years agoLast pap smear was 03/2021 CHE SANTOS Attn: [address] [place], [address], [place] [facility] 10/06/2021 15:31:26 01/06/2022 text/html 41 year old ineg arellano presents today for STD testing. She is in a new relationship and wants to ensure no infections prior to becoming sexually active with new partner. 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 No concerning STD symptoms including pelvic pain, vaginal discharge, dysuria, and vaginal irritation. CHE SANTOS Attn: [address] [place], [address], [place] [facility] 01/06/2022 15:08:59 03/15/2023 text/html 42-year-old female here for annual exam. Patient got a hysterectomy in March of 2022 at [facility] per [facility] [place]. Patient would like to get tested for STI, denies having any signs or symptoms of STI. Patient would also like to get scripts for acyclovir. Called [facility] [place] and got 2 month's worth but will need a year's RX after that. PIEDAD LACKEY PA-C Attn: [address] [place], [address], [place] 03/15/2023 16:31:28 05/23/2024 text/html 43 y/o F here to establish IM care. Pt has allergy to bleach and is needing note for work to not be around it when it is being used.Pt is wanting to start medication for weight loss.Pt is needing refill on albuterol, states she is still coughing and having ALEGRIA.Pt states she was given BP medication but has taken it in a long time. Does not check BP at home. 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
--- NOTE | 2024-08-14 14:30 | NEURO_ITS ---
Impression: # Complains of feet pain. ? # Normal Nerve Conduction Study except absent right superficial peroneal sensory response. ? # Normal needle/EMG exam. ? # Clinical correlation recommended. Nerve Conduction Studies Anti Sensory Summary Table ?Stim Site NR Peak (ms) P-T Amp (?V) Site1 Site2 Delta-P (ms) Dist (cm) Pasha (m/s) Left Sup Fibular Anti Sensory (Ant Lat Mall) 14 cm ? 2.5 5.6 14 cm Ant Lat Mall 2.5 16.0 64 Right Sup Fibular Anti Sensory (Ant Lat Mall)??? NO RESPONSE 14 cm NR 14 cm Ant Lat Mall 16.0 Left Sural Anti Sensory (Lat Mall) Calf ? 2.9 12.0 Calf Lat Mall 2.9 16.0 55 Right Sural Anti Sensory (Lat Mall) Calf ? 2.7 10.0 Calf Lat Mall 2.7 16.0 59 Motor Summary Table ?Stim Site NR Onset (ms) O-P Amp (mV) Site1 Site2 Delta-0 (ms) Dist (cm) Pasha (m/s) Left Peroneal Motor (Vastus Med) Ankle ? 3.5 5.9 Popit Ankle 7.5 38.0 51 Popit ? 11.0 5.1 Right Peroneal Motor (Vastus Med) Ankle ? 3.2 1.2 Popit Ankle 6.6 36.0 55 Popit ? 9.8 0.9 Left Tibial Motor (Abd Hinton Brev) Ankle ? 3.8 5.2 Knee Ankle 8.0 41.0 51 Knee ? 11.8 2.4 Right Tibial Motor (Abd Hinton Brev) Ankle ? 3.0 7.5 Knee Ankle 7.9 37.0 47 Knee ? 10.9 3.2 F Wave Studies ?NR F-Lat (ms) L-R F-Lat (ms) Left Peroneal (Mrkrs) (EDB) ? 47.03 1.27 Right Peroneal (Mrkrs) (EDB) ? 48.31 1.27 Left Tibial (Mrkrs) (Abd Hallucis) ? 47.04 0.62 Right Tibial (Mrkrs) (Abd Hallucis) ? 47.66 0.62 EMG ?Side Muscle Nerve Root Ins Act Fibs Amp Dur Recrt Comment Right AntTibialis Dp Br Fibular L4-5 Nml Nml Nml Nml Nml Right Gastroc Tibial S1-2 Nml Nml Nml Nml Nml Right Fibularis Long Sup Br Fibular L5-S1 Nml Nml Nml Nml Nml Right Flex Dig Long Tibial L5-S2 Nml Nml Nml Nml Nml Right Ext Dig Brev Dp Br Fibular L5, S1 Nml Nml Nml Nml Nml Right QuadratusFem QuadFemoris L4-5, S1 Nml Nml Nml Nml Nml Left AntTibialis Dp Br Fibular L4-5 Nml Nml Nml Nml Nml Left Gastroc Tibial S1-2 Nml Nml Nml Nml Nml Left Fibularis Long Sup Br Fibular L5-S1 Nml Nml Nml Nml Nml Left Flex Dig Long Tibial L5-S2 Nml Nml Nml Nml Nml Left Ext Dig Brev Dp Br Fibular L5, S1 Nml Nml Nml Nml Nml Left QuadratusFem QuadFemoris L4-5, S1 Nml Nml Nml Nml Nml MTDD
== END 2024-08-14 13:18 | disposition home or self-care (01) ==
LOC: ANHNEURO 13:18
PROVIDERS: Visit Provider Podiatrist Foot & Ankle Surgery
DX: G57.32 Lesion of lateral popliteal nerve, left lower limb (principal)
CPT/HCPCS: 95886; 95910